=== PATIENT | male | born 1970 ===

== ENCOUNTER 2018-08-01 23:50 | Emergency (ER) | payer MEDICAID ==
[2018-08-02] MEDS ORDERED: Sodium Chloride 0.9% 1,000 ML IV ONE (00:20)
--- NOTE | 2018-08-02 00:20 | C.PDOC ---
History Of Present Illness 48 year old male presents to the ED c/o abdominal pain associated with nausea, vomit and diarrhea. Patient states symptoms started after eating [employer]. Patient denies fever, chills, back pain, dysuria, hematuria, rash, recent t ravel, sick contacts. Time Seen by Provider: 08/02/18 00:20 Chief Complaint (Nursing): Abdominal Pain History Per: Patient History/Exam Limitations: no limitations Onset/Duration Of Symptoms: Hrs Current Symptoms Are (Timing): Still Present Context: Food Location Of Pain/Discomfort: Diffuse Quality Of Discomfort: "Pain" Associated Symptoms: Nausea, Vomiting, Diarrhea. denies: Urinary Symptoms Alleviating Factors: None Recent travel outside of the [place]: No Additional History Per: Patient Past Medical History Reviewed: Historical Data, Nursing Documentation, Vital Signs Vital Signs: Last Vital Signs Temp 98 F 08/01/18 23:57 Pulse 77 08/01/18 23:57 Resp 18 08/01/18 23:57 BP 151/74 H 08/01/18 23:57 Pulse Ox 99 08/01/18 23:57 - Medical History PMH: No Chronic Diseases Denies: Chronic Kidney Disease Surgical History: No Surg Hx Family History: States: Unknown Family Hx - Social History Hx Alcohol Use: No Hx Substance Use: No - Immunization History Hx Tetanus Toxoid Vaccination: No Hx Influenza Vaccination: No Hx Pneumococcal Vaccination: No Review Of Systems Constitutional: Negative for: Fever, Chills Cardiovascular: Negative for: Chest Pain Respiratory: Negative for: Shortness of Breath Gastrointestinal: Positive for: Nausea, Vomiting, Abdominal Pain, Diarrhea Genitourinary: Negative for: Dysuria, Hematuria Musculoskeletal: Negative for: Back Pain Skin: Negative for: Rash Neurological: Negative for: Weakness, Numbness Physical Exam - Physical Exam Appears: Non-toxic, No Acute Distress Skin: Warm, Dry Head: Normacephalic Eye(s): bilateral: Normal Inspection Oral Mucosa: Moist Neck: Supple Chest: Symmetrical Cardiovascular: Rhythm Regular Respiratory: No Rales, No Rhonchi, No Wheezing Gastrointestinal/Abdominal: Soft, Tenderness (mid epigastric), No Guarding Back: No CVA Tenderness Extremity: Bilateral: Atraumatic, Normal Color And Temperature, Normal ROM Neurological/Psych: Oriented x3, Normal Speech, Normal Cognition Gait: Steady ED Course And Treatment - Laboratory Results Result Diagrams: 08/02/18 00:32 08/02/18 00:32 O2 Sat by Pulse Oximetry: 99 (ON RA) Pulse Ox Interpretation: Normal Progress Note: Plan: - Labs. - Protonox 40 mg IVP. - IV fluids. - Zofran 4 mg IVP. - UA. pt tolerating PO Reevaluation Time: 02:13 Reassessment Condition: Improved Disposition Counseled Patient/Family Regarding: Studies Performed, Diagnosis, Need For Followup, Rx Given - Disposition Referrals: [facility] [Outside] [facility] [Outside] Disposition: HOME/ ROUTINE Disposition Time: 00:20 Condition: FAIR Additional Instructions: Please return if symptoms recur Prescriptions: Ondansetron ODT [Zofran ODT] 1 odt PO BID PRN #6 odt PRN Reason: Nausea/Vomiting Instructions: Food Poisoning (DC) Forms: [employer] (Brazilian) - Clinical Impression Clinical Impression: Food poisoning - Scribe Statement The provider has reviewed the documentation as recorded by the Scribe Marvin Huizar All medical record entries made by the Scribe were at my direction and personally dictated by me. I have reviewed the chart and agree that the record accurately reflects my personal performance of the history, physical exam, m edical decision making, and the department course for this patient. I have also personally directed, reviewed, and agree with the discharge instructions and disposition.
[2018-08-02 00:36] LABS: BASO % 0.5 % (0.0-2.0); EOS % 0.4 % (0.0-4.0); HEMOGLOBIN 13.7 g/dL (12.0-18.0); LYMPH # 0.4 K/uL (1.0-4.3); LYMPH % 4.1 % (20.0-40.0); MEAN CELL VOLUME 85.1 fL (80.0-94.0); MEAN CORPUSCULAR HGB CONC 34.1 g/dL (33.0-37.0); MEAN PLATELET VOLUME 8.6 fL (7.2-11.7); MONO # 0.5 K/uL (0.0-0.8); MONO % 5.5 % (0.0-10.0); NEUT # 8.2 K/uL (1.8-7.0); NEUT % 89.5 % (50.0-75.0); NRBC % 0.1 % (0.0-2.0); PLATELET COUNT 66 K/uL (130-400); RBC 4.73 Mil/uL (4.40-5.90); RED CELL DISTRIBUTION WIDTH 16.5 % (11.5-14.5); WHITE BLOOD COUNT 9.2 K/uL (4.8-10.8)
[2018-08-02 00:54] LABS: ALB/GLOB RATIO 0.8 (1.0-2.1); ALBUMIN 3.4 g/dL (3.5-5.0); ALT/SGPT 28 U/L (21-72); AST/SGOT 57 U/L (17-59); BLOOD UREA NITROGEN 8 mg/dL (9-20); CALCIUM 8.2 mg/dl (8.6-10.4); GFR NON-AFRICAN AMERICAN > 60; LIPASE 104 U/L (23-300)
[2018-08-02 01:27] LABS: BANDS 2 % (0-2); LYMPHOCYTE 6 % (20-40); MONOCYTE 6 % (0-10); NEUTROPHIL 86 % (50-75); TOTAL CELLS COUNTED 100
[2018-08-02 01:28] LABS: PLATELET ESTIMATE DECREASED (NORMAL)
[2018-08-02 02:29] VITALS: BP 125/76; PULSE 88; RESP 20; TEMP 98; O2SAT 96
[2018-08-02 02:44] LABS: SQUAMOUS EPITHIAL < 1 /hpf (0-5); URINE BILIRUBIN NEGATIVE (NEGATIVE); URINE BLOOD 1+ (NEGATIVE); URINE CLARITY Clear (Clear); URINE COLOR Amber (YELLOW); URINE GLUCOSE (UA) NORMAL (Normal); URINE LEUKOCYTE ESTERASE NEG Leu/uL (Negative); URINE PROTEIN 1+ mg/dL (NEGATIVE)
== END 2018-08-02 02:29 | disposition home or self-care (01) ==
LOC: C.ER 23:50
DX: T62.91XA Toxic effect of unspecified noxious substance eaten as food, accidental (unintentional), initial encounter (principal)
CPT/HCPCS: 80053; 81001; 83690; 85025; 96361; 96374; 96375; 99285; C9113; J1885; J2405; J7030

== ENCOUNTER 2018-12-09 10:17 | Inpatient (IN) | payer MEDICAID ==
[2018-12-09 10:51] LABS: BASO % 0.2 % (0.0-2.0); EOS # 0.1 K/uL (0.0-0.7); EOS % 0.7 % (0.0-4.0); LYMPH # 0.7 K/uL (1.0-4.3); LYMPH % 8.8 % (20.0-40.0); MEAN CORPUSCULAR HEMOGLOBIN 30.3 pg (27.0-31.0); MEAN CORPUSCULAR HGB CONC 34.6 g/dL (33.0-37.0); MEAN PLATELET VOLUME 8.6 fL (7.2-11.7); MONO # 0.1 K/uL (0.0-0.8); MONO % 0.9 % (0.0-10.0); NEUT # 6.7 K/uL (1.8-7.0); NEUT % 89.4 % (50.0-75.0); RBC 4.29 Mil/uL (4.40-5.90); RED CELL DISTRIBUTION WIDTH 15.7 % (11.5-14.5); WHITE BLOOD COUNT 7.5 K/uL (4.8-10.8)
[2018-12-09 10:55] LABS: VENOUS BLOOD GAS PCO2 36 mmHg (40-60); VENOUS BLOOD GAS PO2 47 mm/Hg (30-55)
--- NOTE | 2018-12-09 10:58 | C.PDOC ---
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 Patient denies chest pain, shortness of breath, cough, and dysuria. Time Seen by Provider: 12/09/18 10:25 Chief Complaint (Nursing): Abdominal Pain History Per: Patient, EMS History/Exam Limitations: no limitations Onset/Duration Of Symptoms: Hrs (2) Current Symptoms Are (Timing): Still Present Severity: Moderate Radiation Of Pain To:: Back Quality Of Discomfort: "Pain" Associated Symptoms: Nausea, Vomiting, Diarrhea, Back Pain. denies: Chest Pain, Urinary Symptoms Additional History Per: Patient Past Medical History Reviewed: Historical Data, Nursing Documentation, Vital Signs Vital Signs: Last Vital Signs Temp 103.0 F H 12/09/18 10:25 Pulse 95 H 12/09/18 10:25 Resp 18 12/09/18 10:25 BP 142/54 L 12/09/18 10:25 Pulse Ox 95 12/09/18 10:25 - Medical History PMH: No Chronic Diseases Surgical History: No Surg Hx Family History: States: No Known Family Hx - Social History Hx Alcohol Use: No Hx Substance Use: No - Immunization History Hx Tetanus Toxoid Vaccination: No Hx Influenza Vaccination: Yes Hx Pneumococcal Vaccination: Yes Review Of Systems Constitutional: Positive for: Fever Cardiovascular: Negative for: Chest Pain, Palpitations Respiratory: Negative for: Cough, Shortness of Breath Gastrointestinal: Positive for: Nausea, Vomiting, Abdominal Pain, Diarrhea Genitourinary: Negative for: Dysuria Musculoskeletal: Positive for: Back Pain (lower) Skin: Negative for: Rash Physical Exam - Physical Exam Appears: Well, Non-toxic, No Acute Distress, Other (in moderate pain, moaning ) Skin: Warm, Dry, Other (diffuse psoriatic lesions to back, abdomen and hands and primarily on arms and legs bilaterally ) Eye(s): bilateral: Normal Inspection Oral Mucosa: Moist Neck: Supple Chest: Symmetrical, No Deformity, No Tenderness Cardiovascular: Rhythm Regular, Murmur (3/6, holosystolic ), Other (tachycardic ) Respiratory: Normal Breath Sounds, No Rales, No Rhonchi, No Wheezing Gastrointestinal/Abdominal: Bowel Sounds, Soft, Tenderness (diffuse TTP, no overlying erythema), Distention (mild), No Guarding, No Rebound, Other (obese ) Extremity: Normal ROM, No Pedal Edema, No Calf Tenderness Neurological/Psych: Oriented x3, Other (appers to be underinfluence of drugs, able to follow commands) ED Course And Treatment - Laboratory Results Result Diagrams: 12/09/18 10:46 12/09/18 10:46 Lab Results: pO2 47 mm/Hg (30-55) 12/09/18 10:51 VBG pH 7.40 (7.32-7.43) 12/09/18 10:51 VBG pCO2 36 mmHg (40-60) L 12/09/18 10:51 VBG HCO3 23.0 mmol/L 12/09/18 10:51 VBG Total CO2 23.4 mmol/L (22-28) 12/09/18 10:51 VBG O2 Sat (Calc) 82.9 % (40-65) H 12/09/18 10:51 VBG Base Excess -2.0 mmol/L (0.0-2.0) L 12/09/18 10:51 VBG Potassium 3.0 mmol/L (3.6-5.2) L 12/09/18 10:51 Sodium 141.0 mmol/l (132-148) 12/09/18 10:51 Chloride 106.0 mmol/L (98-107) 12/09/18 10:51 Glucose 69 mg/dl (75-110) L 12/09/18 10:51 Lactate 4.9 mmol/L (0.7-2.1) H* 12/09/18 10:51 Crit Value Called To Dr echeverria 12/09/18 10:51 Crit Value Called By Girma hirsch business process manager 12/09/18 10:51 Crit Value Read Back Y 12/09/18 10:51 Blood Gas Notified Time 1055 12/09/18 10:51 O2 Sat by Pulse Oximetry: 95 (on RA) Pulse Ox Interpretation: Normal - Other Rad CXR X-Ray: Viewed By Me, Read By Radiologist Interpretation: HISTORY: FEVER. COMPARISON: None available. TECHNIQUE: Chest, one view. FINDINGS: Examination limited by habitus, hypoinflation, and patient obliquity. LUNGS: No focal consolidation. Please note that chest x- ray has limited sensitivity for the detection of pulmonary masses. PLEURA: No significant pleural effusion identified. No definite pneumothorax . CARDIO VASCULAR: Heart size appears top normal. No significant atherosclerotic calcification present. OSSEOUS STRUCTURES: No acute osseous abnormality identified. VISUALIZED UPPER ABDOMEN: Unremarkable. OTHER FINDINGS: None. IMPRESSION: No focal consolidation. Progress Note: Bloodwork, urinalysis, CXR, CT A/P ordered and reviewed. Motrin PO, Toradol IVP, Zofran IVP, and Zosyn IVP given. Disposition - Disposition Disposition Time: 13:25 Condition: STABLE Forms: [employer] (Icelandic) - Clinical Impression Clinical Impression: Fever, Abdominal pain, Nausea, Vomiting, Diarrhea - Scribe Statement The provider has reviewed the documentation as recorded by the Scribe (Neeru Garza) Provider Attestation: All medical record entries made by the Scribe were at my direction and personally dictated by me. I have reviewed the chart and agree that the record accurately reflects my personal performance of the history, physical exam, medical decision making, and the department course for this patient. I have also personally directed, reviewed, and agree with the discharge instructions and disposition. Physician Patient Turnover Patient Signed Over To: Lilo Barnes Handoff Comments: pending CT abd/pelvis
[2018-12-09] MEDS ORDERED: Piperacillin/Tazobact 3.375 gm 100 ML IV STA (10:59)
[2018-12-09 11:03] LABS: INR 1.8; PROTHROMBIN TIME 19.7 SECONDS (9.7-12.2)
[2018-12-09 11:07] LABS: MEAN CELL VOLUME 87.7 fL (80.0-94.0)
[2018-12-09 11:08] LABS: PLATELET COUNT 86 K/uL (130-400)
[2018-12-09 11:13] LABS: ALB/GLOB RATIO 0.8 (1.0-2.1); ALBUMIN 2.9 g/dL (3.5-5.0); ALT/SGPT 15 U/L (21-72); AST/SGOT 54 U/L (17-59); BLOOD UREA NITROGEN 7 mg/dL (9-20); CALCIUM 8.2 mg/dl (8.6-10.4); GFR NON-AFRICAN AMERICAN > 60; LIPASE 146 U/L (23-300)
[2018-12-09] MEDS ORDERED: Sodium Chloride 0.9% 1,000 ML IV ONE (11:25)
[2018-12-09] MEDS ORDERED: Piperacillin/Tazobact 3.375 gm 100 ML IVPB ONE (11:30)
[2018-12-09] MEDS ORDERED: Iodixanol 320 MG/ML 100 ML BOTTLE IV ONE (11:36)
[2018-12-09 11:37] LABS: BANDS 21 % (0-2); LYMPHOCYTE 5 % (20-40); MONOCYTE 3 % (0-10); MYELOCYTE 1 % (0-0); NEUTROPHIL 70 % (50-75); TOTAL CELLS COUNTED 100
[2018-12-09 11:38] LABS: PLATELET ESTIMATE DECREASED (NORMAL)
--- NOTE | 2018-12-09 11:45 | RAD ---
HISTORY: FEVER COMPARISON: None available. TECHNIQUE: Chest, one view. FINDINGS: Examination limited by habitus, hypoinflation, and patient obliquity. LUNGS: No focal consolidation. Please note that chest x-ray has limited sensitivity for the detection of pulmonary masses. PLEURA: No significant pleural effusion identified. No definite pneumothorax . CARDIOVASCULAR: Heart size appears top normal. No significant atherosclerotic calcification present. OSSEOUS STRUCTURES: No acute osseous abnormality identified. VISUALIZED UPPER ABDOMEN: Unremarkable. OTHER FINDINGS: None. IMPRESSION: No focal consolidation.
[2018-12-09 11:49] LABS: SQUAMOUS EPITHIAL 1 /hpf (0-5); URINE BILIRUBIN NEGATIVE (NEGATIVE); URINE BLOOD 1+ (NEGATIVE); URINE CLARITY Hazy (Clear); URINE COLOR Yellow (YELLOW); URINE GLUCOSE (UA) NORMAL (Normal); URINE LEUKOCYTE ESTERASE NEG Leu/uL (Negative); URINE PROTEIN NEGATIVE (NEGATIVE)
[2018-12-09] MEDS ORDERED: Sodium Chloride 0.9% 2,000 ML IV ONE (11:50)
[2018-12-09 12:17] LABS: BARBITURATES, UR NEGATIVE (NEGATIVE); BENZODIAZEPINES, UR NEGATIVE (NEGATIVE); OPIATES, UR NEGATIVE (NEGATIVE); PHENCYCLIDINE, UR NEGATIVE (NEGATIVE)
--- NOTE | 2018-12-09 14:02 | CT ---
Date of service: 12/09/2018 PROCEDURE: CT Abdomen and Pelvis with contrast HISTORY: DIFFUSE ABD PAIN, ASCITES, FEVER COMPARISON: None available. TECHNIQUE: Contrast dose: 100 mL Radiation dose: Total exam DLP = 1164.72 mGy-cm. This CT exam was performed using one or more of the following dose reduction techniques: Automated exposure control, adjustment of the mA and/or kV according to patient size, and/or use of iterative reconstruction technique. FINDINGS: LOWER THORAX: 9 x 14 mm nodule at the right hemidiaphragm. No visible consolidation, pleural effusion, or pneumothorax. Mamie off a GB air sees. Thickened abnormal appearance of the included portions distal esophagus. LIVER: Nodular hepatic contour. Heterogeneous hepatic echotexture. Ill-defined hypoattenuation within the left hepatic lobe. GALLBLADDER AND BILE DUCTS: Unremarkable. PANCREAS: Atrophic. SPLEEN: Marked splenomegaly. 3.0 cm probable splenule. ADRENALS: Unremarkable. KIDNEYS AND URETERS: The kidneys enhance symmetrically. No hydronephrosis or obstructing calculus identified. VASCULATURE: Upper abdominal varices. No aortic aneurysm. No atherosclerotic calcification or mural plaque present. BOWEL: Stomach is nondistended. Lack of oral contrast limits evaluation for bowel pathology. Focal short segment wall thickening of the right colon; correlate clinically for the possibility of colitis versus malignant neoplasm. APPENDIX: Not visualized. PERITONEUM: No significant free fluid. No definite free air. LYMPH NODES: Retroperitoneal and mesenteric adenopathy. Bulky left inguinal adenopathy measuring up to approximately 2.4 cm in short axis. BLADDER: Under distention of the urinary bladder limits evaluation. REPRODUCTIVE: Unremarkable. BONES: Degenerative changes. OTHER FINDINGS: Small fat containing umbilical hernia. Fluid-filled right inguinal hernia. IMPRESSION: Cirrhotic appearance of the liver as described above. Ill-defined hypoattenuation of the left hepatic lobe. Overall heterogeneous hepatic echotexture. Nodular hepatic contour. 9 x 14 mm nodule noted at the right hemidiaphragm. Atrophic pancreas. Marked splenomegaly. Probable 3 cm splenule. Extensive upper abdominal and esophageal varices. Thick-walled abnormal appearance of the distal esophagus. Focal short segment wall thickening of the right colon; correlate clinically for possibility of colitis versus malignant neoplasm. Retroperitoneal mesenteric adenopathy. Bulky left inguinal adenopathy measures up to 2.4 cm in short axis. Fluid-filled right inguinal hernia. Small fat containing umbilical hernia. Additional findings as above. Findings discussed with Dr. Cheney on 12/09/18 at 1:47 p.m.
--- NOTE | 2018-12-09 14:25 | CP.PCM.HP ---
History of Present Illness - History of Present Illness History of Present Illness: PGY1 Medicine History and Physical Exam Note for Dr. 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 Patient describes the abdominal pain as diffuse, 10/10 in severity, and burning in quality. Patient denies radiating pain, but adds that he also experiences low back pain. Patient says he has been vomiting since last night (non-bilious/non-bloody), and denies blood in his stool/melena. Of note, Patient also complains of left lower extremity pain and attributes it to his venous ulcer. Patient states the wound has been improving significantly, and that he has been changing his dressings daily. Patient otherwise denies headache, chest pain, dysuria, hematuria, hematemesis, fatigue, dizziness, rash, and/or numbness/tingling, PMH: Liver Cirrhosis (secondary to ETOH), previous IVDU (on methadone), and Pso riasis PSH: Patient denies Social Hx: Previous ETOH abuse, 1/2 pack per day of cigarettes x15 years, previous heroin abuse, on methadone Family Hx: Patient denies family hx of cancer, heart disease, and/or diabetes Meds: Methadon ([facility]), Otela (Patient does not recall dose, is non- compliant) Allergies: NKDA PMD: Patient denies Present on Admission - Present on Admission Any Indicators Present on Admission: No History of DVT/PE: No History of Uncontrolled Diabetes: No Urinary Catheter: No Decubitus Ulcer Present: No Review of Systems - Review of Systems All systems: reviewed and no additional remarkable complaints except (as noted in HPI) Past Patient History - Past Social History Smoking Status: Unknown If Ever Smoked - CARDIAC Hx Cardiac Disorders: No - PULMONARY Hx Respiratory Disorders: No - NEUROLOGICAL Hx Neurological Disorder: No - HEENT Hx HEENT Problems: No - RENAL Hx Chronic Kidney Disease: No - ENDOCRINE/METABOLIC Hx Endocrine Disorders: No - HEMATOLOGICAL/ONCOLOGICAL Hx Blood Disorders: No - INTEGUMENTARY Hx Dermatological Problems: No - MUSCULOSKELETAL/RHEUMATOLOGICAL Hx Musculoskeletal Disorders: No - GASTROINTESTINAL Hx Gastrointestinal Disorders: Yes Hx Liver Failure: Yes (liver cirrhosis) - GENITOURINARY/GYNECOLOGICAL Hx Genitourinary Disorders: No - PSYCHIATRIC Hx Substance Use: No - SURGICAL HISTORY Hx Surgeries: No - ANESTHESIA Hx Anesthesia: No Meds Allergies/Adverse Reactions: Allergies Allergy/AdvReac Type Severity Reaction Status Date / Time No Known Allergies Allergy Verified 12/09/18 10:26 Physical Exam - Constitutional Appears: Non-toxic, No Acute Distress, Chronically Ill - Head Exam Head Exam: ATRAUMATIC, NORMAL INSPECTION, NORMOCEPHALIC - Eye Exam Eye Exam: EOMI, Normal appearance, PERRL Pupil Exam: NORMAL ACCOMODATION - ENT Exam ENT Exam: Mucous Membranes Dry Additional comments: poor dentition - Neck Exam Neck exam: Positive for: Normal Inspection - Respiratory Exam Respiratory Exam: Clear to Auscultation Bilateral, NORMAL BREATHING PATTERN. absent: Accessory Muscle Use, Chest Wall Tenderness, Decreased Breath Sounds, Prolonged Expiratory Phase, Rales, Rhonchi, Wheezes, Respiratory Distress, Stridor - Cardiovascular Exam Cardiovascular Exam: Tachycardia, +S1, +S2. absent: Diastolic murmur, Irregular Rhythm, JVD, Systolic Murmur - GI/Abdominal Exam GI & Abdominal Exam: Normal Bowel Sounds, Soft, Tenderness (right lower quadrant tenderness, no rebound, no guarding ). absent: Diminished Bowel Sounds, Distended, Firm, Guarding, Organomegaly, Rebound, Rigid - Extremities Exam Extremities exam: Positive for: full ROM, pedal edema (+2 bilaterally ), pedal pulses present (chronic ulcer on left medial malleolus: 3-inch in diameter, no pus, clean, no foul smell, ). Negative for: calf tenderness - Back Exam Back exam: tenderness (lower back paraspinal muscles ) - Neurological Exam Neurological exam: Alert, CN II-XII Intact, Oriented x3 - Psychiatric Exam Psychiatric exam: Normal Affect, Normal Mood - Skin Skin Exam: Dry, Intact, Normal Color, Warm Results - Vital Signs Recent Vital Signs: Last Vital Signs Temp 98.6 F 12/09/18 13:52 Pulse 95 H 12/09/18 10:25 Resp 18 12/09/18 10:25 BP 142/54 L 12/09/18 10:25 Pulse Ox 95 12/09/18 13:26 - Labs Result Diagrams: 12/09/18 10:46 12/09/18 10:46 Labs: Laboratory Results - last 24 hr 12/09/18 12/09/1819 10:46 10:46 10:46 WBC 7.5 RBC 4.29 L Hgb 13.0 Hct 37.6 MCV 87.7 D MCH 30.3 MCHC 34.6 RDW 15.7 H Plt Count 86 L D MPV 8.6 Neut % (Auto) 89.4 H Lymph % (Auto) 8.8 L [place] % (Auto) 0.9 Eos % (Auto) 0.7 Baso % (Auto) 0.2 Neut # (Auto) 6.7 Lymph # (Auto) 0.7 L [place] # (Auto) 0.1 Eos # (Auto) 0.1 Baso # (Auto) 0.0 Neutrophils % (Manual) 70 Band Neutrophils % 21 H* Lymphocytes % (Manual) 5 L Monocytes % (Manual) 3 Myelocytes % 1 H Platelet Estimate Decreased L PT 19.7 H INR 1.8 APTT 36 H pO2 VBG pH VBG pCO2 VBG HCO3 VBG Total CO2 VBG O2 Sat (Calc) VBG Base Excess VBG Potassium Glucose Lactate Crit Value Called To Crit Value Called By Crit Value Read Back Blood Gas Notified Time Sodium 140 Potassium 3.2 L Chloride 108 H Carbon Dioxide 23 Anion Gap 12 BUN 7 L Creatinine 0.8 Est GFR ( Amer) > 60 Est GFR (Non-Af Amer) > 60 Random Glucose 82 Calcium 8.2 L Total Bilirubin 1.8 H AST 54 ALT 15 L D Alkaline Phosphatase 216 H Total Protein 6.6 Albumin 2.9 L Globulin 3.7 Albumin/Globulin Ratio 0.8 L Lipase 146 Venous Blood Potassium Urine Color Urine Clarity Urine pH Ur Specific [place] Urine Protein Urine Glucose (UA) Urine Ketones Urine Blood Urine Nitrate Urine Bilirubin Urine Urobilinogen Ur Leukocyte Esterase Urine WBC (Auto) Urine RBC (Auto) Ur Squamous Epith Cells Urine Opiates Screen Urine Methadone Screen Ur Barbiturates Screen Ur Phencyclidine Scrn Ur Amphetamines Screen U Benzodiazepines Scrn U Oth Cocaine Metabols U Cannabinoids Screen Alcohol, Quantitative < 10 12/09/18 12/09/18 12/09/18 10:51 11:40 11:40 WBC RBC Hgb Hct MCV MCH MCHC RDW Plt Count MPV Neut % (Auto) Lymph % (Auto) [place] % (Auto) Eos % (Auto) Baso % (Auto) Neut # (Auto) Lymph # (Auto) [place] # (Auto) Eos # (Auto) Baso # (Auto) Neutrophils % (Manual) Band Neutrophils % Lymphocytes % (Manual) Monocytes % (Manual) Myelocytes % Platelet Estimate PT INR APTT pO2 47 VBG pH 7.40 VBG pCO2 36 L VBG HCO3 23.0 VBG Total CO2 23.4 VBG O2 Sat (Calc) 82.9 H VBG Base Excess -2.0 L VBG Potassium 3.0 L Glucose 69 L Lactate 4.9 H* Crit Value Called To Dr echeverria Crit Value Called By Girma hirsch wash oil pump operator Crit Value Read Back Y Blood Gas Notified Time 1055 Sodium 141.0 Potassium Chloride 106.0 Carbon Dioxide Anion Gap BUN Creatinine Est GFR ( Amer) Est GFR (Non-Af Amer) Random Glucose Calcium Total Bilirubin AST ALT Alkaline Phosphatase Total Protein Albumin Globulin Albumin/Globulin Ratio Lipase Venous Blood Potassium 3.0 L Urine Color Yellow Urine Clarity Hazy Urine pH 6.0 Ur Specific [place] 1.009 Urine Protein Negative Urine Glucose (UA) Normal Urine Ketones Negative Urine Blood 1+ H Urine Nitrate Negative Urine Bilirubin Negative Urine Urobilinogen 2.0 Ur Leukocyte Esterase Neg Urine WBC (Auto) 2 Urine RBC (Auto) 8 H Ur Squamous Epith Cells 1 Urine Opiates Screen Negative Urine Methadone Screen Positive H Ur Barbiturates Screen Negative Ur Phencyclidine Scrn Negative Ur Amphetamines Screen Negative U Benzodiazepines Scrn Negative U Oth Cocaine Metabols Negative U Cannabinoids Screen Negative Alcohol, Quantitative Assessment & Plan - Assessment and Plan (Free Text) Assessment: PMHx includes psoriasis and liver cirrhosis (secondary to alcohol abuse), is brought to the ED by ambulance for evaluation of abdominal pain, nausea, vomiting, diarrhea and lower back pain 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 Patient was found to have lactate 4.9, fever, and bands --> CODE SEPSIS was called in ED. Patient subsequently resuscitated with aggressive fluids, started on zosyn. ID was consulted (Dr. Little). Patient subsequently admitted to telemetry. Abdominal Pain, Nausea, Vomiting - Patient has history of cirrhosis and varicosities - GI consulted (Dr. Dixon); recommendations appreciated - 12/09 CT abdomen/pelvis revealed: * cirrhotic appearance of liver * 9x14mm nodule at right hemidiaphragm * arophic pancreas * marked splenomegaly * extensive upper abdominal / esophageal varices * thick-walled appearance of distal esophagus * thickening of right colon; possible colitis vs malignant neoplasm * retroperitoneal mesenteric adenopathy; bulky left inguinal adenopathy 2.4m; fluid-filled right inguinal hernia; small fat containing umbilical hernia - F/U Blood cultures - F/U Urine cultures - UDS: positive for methadone - Zofran 4mg IV Q6H PRN - Toradol PRN for severe pain - NPO --> advance to liquid as tolerated - IVF @100cc/hr - Monitor in telemetry CODE SEPSIS - Bands: 21; VBG shock: lactate 4.9 - F/U VBG repeat: lactate 4.7 - 3L bolus administered in ED - Continue NS @ 100cc/hr - CXR: IMPRESSION: No focal consolidation (please see report) - CT abdomen/pelvis as per above - F/U Blood cultures - F/U Urine cultures - Zosyn x1 dose in ED - Continue Zosyn Q8H IVPB Hypokalemia - Replete with K+ rider - Replete as needed - Monitor CMP, Mg in AM Abnormal urinalysis - +1 blood, 8 RBC - F/U Urine cultures Thombocytopenia - Platelets 86; improved (08/02 was 66) - Monitor CMP - Avoid Heparin products at this time Lower Extremity Edema - Likely secondary to cirrhosis - Ulcer on left lower extremity about 3inches in diameter in left medial malleolus is clean, no oozing. dressing changed in ED - Toradol prn for severe pain - F/U venous doppler B/L to rule-out DVT PPx: - DVT: SCD contraindicated; no lovenox at this time - GI: protonix 40mg IV Q[address] Kwadwo Littlejohn PGY1
[2018-12-09 15:25] LABS: VENOUS BLOOD GAS BASE EXCESS -5.2 mmol/L (0.0-2.0); VENOUS BLOOD GAS PCO2 37 mmHg (40-60); VENOUS BLOOD GAS PO2 47 mm/Hg (30-55); VENOUS BLOOD PH 7.34 (7.32-7.43)
--- NOTE | 2018-12-09 15:31 | PCM.SEPTIC ---
Sepsis Progress Note - Reassessment Type Date of Evaluation: 12/09/18 Time of Evaluation: 15:27 Reassessment Type: Non-invasive reassessment - Non Invasive Reassessment Were the most recent vital sign reviewed: Yes Vital Sign (Latest): Temp Pulse Resp BP Pulse Ox 98.5 F 95 H 18 101/62 97 12/09/18 14:43 12/09/18 14:43 12/09/18 14:43 12/09/18 14:43 12/09/18 14:43 Cardiovascular: Yes: Regular Rate, Rhythm. No: Gallop, JVD Respiratory: Yes: Normal Breath Sounds. No: Decreased Breath Sounds, Crackles, Rales, Rhonchi, Stridor, Wheezing Capillary Refill: Normal (Less than 2 sec) Pulses: Normal Radial, Normal Dorsalis Pedis Skin: Normal Color
[2018-12-09] MEDS: Sodium Chloride 0.9% 1,000 ML IV SCH (15:36)
[2018-12-09] MEDS ORDERED: Sodium Chloride 0.9% 1,000 ML ONE (15:44)
[2018-12-09 16:56] VITALS: RESP 20
[2018-12-09] MEDS: Piperacillin/Tazobact 3.375 GM in Sodium Chloride 100 ML IVPB SCH (18:17)
[2018-12-10] MEDS: Piperacillin/Tazobact 3.375 GM in Sodium Chloride 100 ML IVPB SCH ×4 (00:29→19:25)
[2018-12-10] MEDS: Sodium Chloride 0.9% 1,000 ML IV SCH ×4 (00:30→22:43)
[2018-12-10 08:24] LABS: BASO % 0.1 % (0.0-2.0); HEMOGLOBIN 11.8 g/dL (12.0-18.0); LYMPH # 0.2 K/uL (1.0-4.3); LYMPH % 1.6 % (20.0-40.0); MEAN CELL VOLUME 88.8 fL (80.0-94.0); MEAN CORPUSCULAR HEMOGLOBIN 30.3 pg (27.0-31.0); MEAN CORPUSCULAR HGB CONC 34.1 g/dL (33.0-37.0); MEAN PLATELET VOLUME 9.6 fL (7.2-11.7); MONO # 0.5 K/uL (0.0-0.8); MONO % 3.7 % (0.0-10.0); NEUT # 12.7 K/uL (1.8-7.0); NEUT % 94.6 % (50.0-75.0); NRBC % 0.1 % (0.0-2.0); RED CELL DISTRIBUTION WIDTH 16.1 % (11.5-14.5)
[2018-12-10 08:27] LABS: ALB/GLOB RATIO 0.7 (1.0-2.1); ALBUMIN 2.3 g/dL (3.5-5.0); ALT/SGPT 26 U/L (21-72); AST/SGOT 75 U/L (17-59); BLOOD UREA NITROGEN 17 mg/dL (9-20); CALCIUM 7.4 mg/dl (8.6-10.4); GFR NON-AFRICAN AMERICAN > 60
[2018-12-10 08:35] LABS: PLATELET COUNT 55 K/uL (130-400); WHITE BLOOD COUNT 13.4 K/uL (4.8-10.8)
[2018-12-10 10:19] LABS: BANDS 47 % (0-2); LYMPHOCYTE 4 % (20-40); MONOCYTE 2 % (0-10); NEUTROPHIL 47 % (50-75); TOTAL CELLS COUNTED 100
[2018-12-10 10:20] LABS: ANISOCYTOSIS SLIGHT; PLATELET ESTIMATE DECREASED (NORMAL); POIKILOCYTOSIS SLIGHT
[2018-12-10] MEDS: Magnesium Sulfate 1 gm in D5W 1 GM/100 ML BAG IVPB SCH ×2 (10:39→15:05)
--- NOTE | 2018-12-10 11:25 | CP.PCM.PN ---
Subjective - Date & Time of Evaluation Date of Evaluation: 12/10/18 Time of Evaluation: 11:25 - Subjective Subjective: PGY1 Medicine Progress Note for Dr. Burkett Patient seen and evaluated at bedside this morning. No acute events overnight. No new complaints. Patient says he is hungry; endorses BM. Denies nausea, vomiting. Patient says his abdominal pain improved significantly since admission. Patient otherwise denies dizziness, headache, fever, chills, numbness/tingling, and/or back pain. Objective - Vital Signs/Intake and Output Vital Signs (last 24 hours): Temp Pulse Resp BP Pulse Ox 98.5 F 100 H 20 99/58 L 94 L 12/10/18 08:23 12/10/18 08:23 12/10/18 08:23 12/10/18 08:23 12/10/18 08:23 Intake and Output: 12/10/18 12/10/18 06:59 18:59 Intake Total 700 Balance 700 - Medications Medications: Current Medications Sodium Chloride (Sodium Chloride 0.9%) 1,000 mls @ 100 mls/hr IV .Q10H NELIA Last Admin: 12/10/18 00:30 Dose: Not Given Piperacillin Sod/Tazobactam (Sod 3.375 gm/ Sodium Chloride) 100 mls @ 200 mls/hr IVPB Q6H NELIA; Protocol Last Admin: 12/10/18 05:30 Dose: 200 mls/hr Vancomycin HCl 1 gm/ Sodium (Chloride) 250 mls @ 166.7 mls/hr IVPB Q12H NELIA; Protocol Last Admin: 12/10/18 11:19 Dose: 166.7 mls/hr Ketorolac Tromethamine (Toradol) 15 mg IVP Q6 PRN PRN Reason: Pain, severe (8-10) Last Admin: 12/10/18 05:30 Dose: 15 mg Ondansetron HCl (Zofran Inj) 4 mg IVP Q8H PRN PRN Reason: Nausea/Vomiting Pantoprazole Sodium (Protonix Inj) 40 mg IVP Q12H NELIA Last Admin: 12/10/18 02:43 Dose: 40 mg - Labs Labs: 12/10/18 07:41 12/10/18 07:41 PT 19.7 SECONDS (9.7-12.2) H 12/09/18 10:46 INR 1.8 12/09/18 10:46 APTT 36 SECONDS (21-34) H 12/09/18 10:46 - Additional Findings Additional findings: - Constitutional Appears: Non-toxic, No Acute Distress, Chronically Ill - Head Exam Head Exam: ATRAUMATIC, NORMAL INSPECTION, NORMOCEPHALIC - Eye Exam Eye Exam: EOMI, Normal appearance, PERRL Pupil Exam: NORMAL ACCOMODATION - ENT Exam ENT Exam: Mucous Membranes Dry Additional comments: poor dentition - Neck Exam Neck exam: Positive for: Normal Inspection - Respiratory Exam Respiratory Exam: Clear to Auscultation Bilateral, NORMAL BREATHING PATTERN. absent: Accessory Muscle Use, Chest Wall Tenderness, Decreased Breath Sounds, Prolonged Expiratory Phase, Rales, Rhonchi, Wheezes, Respiratory Distress, Stridor - Cardiovascular Exam Cardiovascular Exam: Tachycardia, +S1, +S2. absent: Diastolic murmur, Irregular Rhythm, JVD, Systolic Murmur - GI/Abdominal Exam GI & Abdominal Exam: Normal Bowel Sounds, Soft, Tenderness (right lower quadrant tenderness, no rebound, no guarding ). absent: Diminished Bowel Sounds, Distended, Firm, Guarding, Organomegaly, Rebound, Rigid - Extremities Exam Extremities exam: Positive for: full ROM, pedal edema (+2 bilaterally ), pedal pulses present (chronic ulcer on left medial malleolus: 3-inch in diameter, no pus, clean, no foul smell, hemosiderinosis). Negative for: calf tenderness - Back Exam Back exam: tenderness (lower back paraspinal muscles ) - Neurological Exam Neurological exam: Alert, CN II-XII Intact, Oriented x3 - Psychiatric Exam Psychiatric exam: Normal Affect, Normal Mood - Skin Skin Exam: Dry, Intact, Normal Color, Warm Assessment and Plan - Assessment and Plan (Free Text) Assessment: PMHx includes psoriasis and liver cirrhosis (secondary to alcohol abuse), is brought to the ED by ambulance for evaluation of abdominal pain, nausea, vomiting, diarrhea and lower back pain which began around 2 hours BLACK BELT. Patient was found to have lactate 4.9, fever, and bands --> CODE SEPSIS was called in ED. Patient subsequently resuscitated with aggressive fluids, started on zosyn. ID was consulted (Dr. Little). Patient subsequently admitted to telemetry. Nausea, vomiting, and abdominal pain (improved) - In the setting of Liver Cirrhosis and Portal Hypertension - Patient has history of cirrhosis and varicosities - F/U stool culture, ova and parasite, influenza A/B, C-diff toxin - F/U Hepatitis panel, Hep A reflex, HIT antibody - GI consulted (Dr. Dixon); recommendations appreciated - 12/09 CT abdomen/pelvis revealed: * cirrhotic appearance of liver * 9x14mm nodule at right hemidiaphragm * arophic pancreas * marked splenomegaly * extensive upper abdominal / esophageal varices * thick-walled appearance of distal esophagus * thickening of right colon; possible colitis vs malignant neoplasm * retroperitoneal mesenteric adenopathy; bulky left inguinal adenopathy 2.4m; fluid-filled right inguinal hernia; small fat containing umbilical hernia - F/U Blood cultures - F/U Urine cultures - UDS: positive for methadone - Zofran 4mg IV Q6H PRN - Toradol PRN for severe pain - NPO --> advance to liquid as tolerated - IVF @100cc/hr - Monitor in telemetry Positive Blood culture: gram positive Cocci - Follow-up final results - on admission: Bands: 21; VBG shock: lactate 4.9 VBG repeat: lactate 4.7 3L bolus administered in ED Zosyn x1 dose in ED - Repeat bands 12/10: 47 - Leukocytosis 12/10 13.4 - ID (Dr. Little) consulted; recommendations appreciated - Continue NS @ 100cc/hr - CXR: IMPRESSION: No focal consolidation (please see report) - CT abdomen/pelvis as per above - Continue Zosyn Q8H IVPB - START: Vancomycin IVPB added 12/10 CODE SEPSIS, called on admission - Bands: 21; VBG shock: lactate 4.9 - F/U VBG repeat: lactate 4.7 - Repeat bands 12/10: 47 - Leukocytosis 12/10 13.4 - ID (Dr. Little) consulted; recommendations appreciated - F/U stool culture, ova and parasite, influenza A/B, C-diff toxin - 3L bolus administered in ED - Continue NS @ 100cc/hr - CXR: IMPRESSION: No focal consolidation (please see report) - CT abdomen/pelvis as per above - F/U Blood cultures - F/U Urine cultures - Zosyn x1 dose in ED - Continue Zosyn Q8H IVPB - Vancomycin IVPB added 12/10 Hypomagnesemia - Mg 1.1 - Replete as needed - F/U AM labs Hypokalemia, resolved - Replete with K+ rider - Replete as needed - Monitor CMP, Mg in AM Abnormal urinalysis - +1 blood, 8 RBC - F/U Urine cultures Thombocytopenia - 12/10: 55 (down from 86) - Likely 2/2 cirrhosis - Monitor CBC - Avoid Heparin products at this time Left Lower Extremity Venous Ulcer 2/2 Stasis - Likely secondary to chronic venous insufficiency - Compression stockings - Ulcer on left lower extremity about 3inches in diameter in left medial malleolus is clean, no oozing. dressing changed in ED - Toradol prn for severe pain - Venous doppler 12/09: no evidence DVT bilaterally. Wall thickening noted of bilateral great saphenous veins, mild valvular incompetence PPx: - DVT: SCD contraindicated; no lovenox at this time - GI: protonix 40mg IV Q[address] Kwadwo Littlejohn PGY1
--- NOTE | 2018-12-10 12:23 | CP.PCM.PCO ---
Physician Communication Note - Physician Communication Note Physician Communication Note: see above
--- NOTE | 2018-12-10 13:00 | CP.PCM.CON ---
History of Present Illness - History of Present Illness History of Present Illness: cellulitis left leg diarrhea- etio ? await cultures iv rx in progress 48-year-old M with PMH of Liver Cirrhosis (secondary to ETOH), previous IVDU (on methadone), and Psoriasis who presents to [facility] ED with abdominal pain , nausea, vomiting, and diarrhea x1 day. Patient also complains of left lower extremity pain and attributes it to his venous ulcer. PMH: Liver Cirrhosis (secondary to ETOH), previous IVDU (on methadone), and Psoriasis PSH: Patient denies Social Hx: Previous ETOH abuse, 1/2 pack per day of cigarettes x15 years, previous heroin abuse, on methadone Family Hx: Patient denies family hx of cancer, heart disease, and/or diabetes Meds: Methadon ([facility]), Otela (Patient does not recall dose, is non- compliant) Allergies: NKDA Review of Systems - Constitutional Constitutional: As Per HPI - EENT Eyes: absent: As Per HPI, Blind Spots, Blurred Vision, Change in Vision, Decreased Night Vision, Diplopia, Discharge, Dry Eye, Exophthalmos, Floaters, Irritation, Itchy Eyes, Loss of Peripheral Vision, Pain, Photophobia, Requires Corrective Lenses, Sees Flashes, Spots in Vision, Tunnel Vision, Other Visual Disturbances, Loss of Vision, Other Ears: absent: As Per HPI, Decreased Hearing, Ear Discharge, Ear Pain, Tinnitus, Abnormal Hearing, Disequilibrium, Dizziness, Other Nose/Mouth/Throat: absent: As Per HPI, Epistaxis, Nasal Congestion, Nasal Discharge, Nasal Obstruction, Nasal Trauma, Nose Pain, Post Nasal Drip, Sinus Pain, Sinus Pressure, Bleeding Gums, Change in Voice, Dental Pain, Dry Mouth, Dysphagia, Halitosis, Hoarsness, Lip Swelling, Mouth Lesions, Mouth Pain, Odynophagia, Sore Throat, Throat Swelling, Tongue Swelling, Facial Pain, Neck Pain, Neck Mass, Other - Cardiovascular Cardiovascular: absent: As Per HPI, Acrocyanosis, Chest Pain, Chest Pain at Rest, Chest Pain with Activity, Claudication, Diaphoresis, Dyspnea, Dyspnea on Exertion, Edema, Irregular Heart Rhythm, Pain Radiating to Arm/Neck/Jaw, Leg Edema, Leg Ulcers, Lightheadedness, Orthopnea, Palpitations, Paroxysmal Nocturnal Dyspnea, Pedal Edema, Radiating Pain, Rapid Heart Rate, Slow Heart Rate, Syncope, Other - Respiratory Respiratory: absent: As Per HPI, Cough, Dyspnea, Hemoptysis, Dyspnea on Exert ion, Wheezing, Snoring, Stridor, Pain on Inspiration, Chest Congestion, Excessive Mucous Production, Change in Mucous Color, Pain with Coughing, Other - Gastrointestinal Gastrointestinal: As Per HPI - Genitourinary Genitourinary: absent: As Per HPI, Change in Urinary Stream, Difficulty Urinating, Dysuria, Flank Pain, Hematuria, Pyuria, Nocturia, Urinary Incontinence, Urinary Frequency, Urinary Hesitance, Urinary Urgency, Voiding Freq/Small Amts, Freq UTI, Hx Renal/Bladder Calculi, Hx /Renal Surgery, Bladder Distension, Other - Musculoskeletal Musculoskeletal: As Per HPI - Integumentary Integumentary: As Per HPI, Skin Pain, Wounds - Neurological Neurological: absent: As Per HPI, Abnormal Gait, Abnormal Hearing, Abnormal Movements, Abnormal Speech, Behavioral Changes, Burning Sensations, Confusion, Convulsions, Disequilibrium, Dizziness, Numbness, Focal Weakness, Frequent Falls, Headaches, Lack of Coordination, Loss of Vision, Memory Loss, Paresthesias, Radicular Pain, Restless Legs, Sensory Deficit, Syncope, Tingling, Tremor, Vertigo, Weakness, Other Visual Disturbances, Other - Psychiatric Psychiatric: absent: As Per HPI, Abnormal Sleep Pattern, Anhedonia, Anxiety, Auditory Hallucinations, Behavioral Changes, Change in Appetite, Change in Libid o, Confusion, Depression, Difficulty Concentrating, Hallucinations, Homicidal Ideation, Hopelessness, Irritability, Memory Loss, Mood Swings, Panic Attacks, Paranoia, Suicidal Ideation, Visual Hallucinations, Tactile Hallucinations, Other - Endocrine Endocrine: absent: As Per HPI, Change in Body Appearance, Change in Libido, Cold Intolorance, Deepening of Voice, Excessive Sweating, Fatigue, Flushing, Heat Intolorance, Increase in Ring/Shoe/Hat Size, Palpitations, Polydipsia, Polyphagia, Polyuria, Other - Hematologic/Lymphatic Hematologic: absent: As Per HPI, Easy Bleeding, Easy Bruising, Lymphadenopathy, Other Past Patient History - Past Social History Smoking Status: Unknown If Ever Smoked - CARDIAC Hx Cardiac Disorders: No - PULMONARY Hx Respiratory Disorders: No - NEUROLOGICAL Hx Neurological Disorder: No - HEENT Hx HEENT Problems: No - RENAL Hx Chronic Kidney Disease: No - ENDOCRINE/METABOLIC Hx Endocrine Disorders: No - HEMATOLOGICAL/ONCOLOGICAL Hx Blood Disorders: No - INTEGUMENTARY Hx Dermatological Problems: No - MUSCULOSKELETAL/RHEUMATOLOGICAL Hx Musculoskeletal Disorders: No - GASTROINTESTINAL Hx Gastrointestinal Disorders: Yes Hx Liver Failure: Yes (liver cirrhosis) - GENITOURINARY/GYNECOLOGICAL Hx Genitourinary Disorders: No - PSYCHIATRIC Hx Substance Use: No - SURGICAL HISTORY Hx Surgeries: No - ANESTHESIA Hx Anesthesia: No Meds Allergies/Adverse Reactions: Allergies Allergy/AdvReac Type Severity Reaction Status Date / Time No Known Allergies Allergy Verified 12/09/18 10:26 - Medications Medications: Current Medications Sodium Chloride (Sodium Chloride 0.9%) 1,000 mls @ 100 mls/hr IV .Q10H NELIA Last Admin: 12/10/18 00:30 Dose: Not Given Piperacillin Sod/Tazobactam (Sod 3.375 gm/ Sodium Chloride) 100 mls @ 200 mls/hr IVPB Q6H NELIA; Protocol Last Admin: 12/10/18 05:30 Dose: 200 mls/hr Vancomycin HCl 1 gm/ Sodium (Chloride) 250 mls @ 166.7 mls/hr IVPB Q12H NELIA; Protocol Last Admin: 12/10/18 11:19 Dose: 166.7 mls/hr Ketorolac Tromethamine (Toradol) 15 mg IVP Q6 PRN PRN Reason: Pain, severe (8-10) Last Admin: 12/10/18 05:30 Dose: 15 mg Ondansetron HCl (Zofran Inj) 4 mg IVP Q8H PRN PRN Reason: Nausea/Vomiting Pantoprazole Sodium (Protonix Inj) 40 mg IVP Q12H NELIA Last Admin: 12/10/18 02:43 Dose: 40 mg Physical Exam - Constitutional Appears: Toxic - Head Exam Head Exam: ATRAUMATIC, NORMAL INSPECTION, NORMOCEPHALIC - Eye Exam Eye Exam: PERRL. absent: Scleral icterus Pupil Exam: NORMAL ACCOMODATION - ENT Exam ENT Exam: Mucous Membranes Dry, Normal Oropharynx - Neck Exam Neck exam: Negative for: Lymphadenopathy - Respiratory Exam Respiratory Exam: Decreased Breath Sounds, Clear to Auscultation Bilateral - Cardiovascular Exam Cardiovascular Exam: Tachycardia, REGULAR RHYTHM, +S1, +S2 - GI/Abdominal Exam GI & Abdominal Exam: Diminished Bowel Sounds, Distended, Guarding - Rectal Exam Rectal Exam: Deferred - Exam Exam: NORMAL INSPECTION - Extremities Exam Extremities exam: Positive for: pedal edema, tenderness, pedal pulses present. Negative for: normal inspection Additional comments: ulcer / celluliits left leg - Back Exam Back exam: absent: CVA tenderness (L), CVA tenderness (R) - Neurological Exam Neurological exam: Alert, CN II-XII Intact, Oriented x3, Reflexes Normal - Psychiatric Exam Psychiatric exam: Depressed - Skin Skin Exam: Rash Additional comments: severe psoriatic lesions especially upper extremities Results - Vital Signs Recent Vital Signs: Last Vital Signs Temp 98.5 F 12/10/18 08:23 Pulse 100 H 12/10/18 08:23 Resp 20 12/10/18 08:23 BP 99/58 L 12/10/18 08:23 Pulse Ox 94 L 12/10/18 08:23 - Labs Result Diagrams: 12/10/18 07:41 12/10/18 07:41 Labs: Laboratory Results - last 24 hr 12/09/18 12/09/18 12/09/18 10:46 15:17 16:05 WBC RBC Hgb Hct MCV MCH MCHC RDW Plt Count MPV Neut % (Auto) Lymph % (Auto) [place] % (Auto) Eos % (Auto) Baso % (Auto) Neut # (Auto) Lymph # (Auto) [place] # (Auto) Eos # (Auto) Baso # (Auto) Neutrophils % (Manual) Band Neutrophils % Lymphocytes % (Manual) Monocytes % (Manual) Platelet Estimate Poikilocytosis (manual Anisocytosis (manual) pO2 47 VBG pH 7.34 VBG pCO2 37 L VBG HCO3 20.4 VBG Total CO2 21.1 L VBG O2 Sat (Calc) 82.1 H VBG Base Excess -5.2 L VBG Potassium 3.7 Glucose 88 Lactate 4.7 H* Crit Value Called To Dr curry Crit Value Called By Dr curry Crit Value Read Back Y Blood Gas Notified Time 1524 Sodium 140 140.0 Potassium 3.2 L Chloride 108 H 108.0 H Carbon Dioxide 23 Anion Gap 12 BUN 7 L Creatinine 0.8 Est GFR ( Amer) > 60 Est GFR (Non-Af Amer) > 60 POC Glucose (mg/dL) 82 Random Glucose 82 Calcium 8.2 L Phosphorus Magnesium Total Bilirubin 1.8 H AST 54 ALT 15 L D Alkaline Phosphatase 216 H Total Protein 6.6 Albumin 2.9 L Globulin 3.7 Albumin/Globulin Ratio 0.8 L Lipase 146 Venous Blood Potassium 3.7 Alcohol, Quantitative < 10 12/09/18 12/10/18 12/10/18 21:32 07:03 07:41 WBC 13.4 H D RBC 3.90 L Hgb 11.8 L Hct 34.7 L MCV 88.8 MCH 30.3 MCHC 34.1 RDW 16.1 H Plt Count 55 L D MPV 9.6 Neut % (Auto) 94.6 H Lymph % (Auto) 1.6 L [place] % (Auto) 3.7 Eos % (Auto) 0.0 Baso % (Auto) 0.1 Neut # (Auto) 12.7 H Lymph # (Auto) 0.2 L [place] # (Auto) 0.5 Eos # (Auto) 0.0 Baso # (Auto) 0.0 Neutrophils % (Manual) 47 L Band Neutrophils % 47 H* Lymphocytes % (Manual) 4 L Monocytes % (Manual) 2 Platelet Estimate Decreased L Poikilocytosis (manual Slight Anisocytosis (manual) Slight pO2 VBG pH VBG pCO2 VBG HCO3 VBG Total CO2 VBG O2 Sat (Calc) VBG Base Excess VBG Potassium Glucose Lactate Crit Value Called To Crit Value Called By Crit Value Read Back Blood Gas Notified Time Sodium Potassium Chloride Carbon Dioxide Anion Gap BUN Creatinine Est GFR ( Amer) Est GFR (Non-Af Amer) POC Glucose (mg/dL) 110 93 Random Glucose Calcium Phosphorus Magnesium Total Bilirubin AST ALT Alkaline Phosphatase Total Protein Albumin Globulin Albumin/Globulin Ratio Lipase Venous Blood Potassium Alcohol, Quantitative 12/10/18 12/10/18 07:41 11:23 WBC RBC Hgb Hct MCV MCH MCHC RDW Plt Count MPV Neut % (Auto) Lymph % (Auto) [place] % (Auto) Eos % (Auto) Baso % (Auto) Neut # (Auto) Lymph # (Auto) [place] # (Auto) Eos # (Auto) Baso # (Auto) Neutrophils % (Manual) Band Neutrophils % Lymphocytes % (Manual) Monocytes % (Manual) Platelet Estimate Poikilocytosis (manual Anisocytosis (manual) pO2 VBG pH VBG pCO2 VBG HCO3 VBG Total CO2 VBG O2 Sat (Calc) VBG Base Excess VBG Potassium Glucose Lactate Crit Value Called To Crit Value Called By Crit Value Read Back Blood Gas Notified Time Sodium 136 Potassium 4.4 Chloride 111 H Carbon Dioxide 18 L Anion Gap 12 BUN 17 Creatinine 1.1 Est GFR ( Amer) > 60 Est GFR (Non-Af Amer) > 60 POC Glucose (mg/dL) 80 Random Glucose 79 Calcium 7.4 L Phosphorus 2.6 Magnesium 1.1 L Total Bilirubin 2.9 H AST 75 H D ALT 26 Alkaline Phosphatase 89 Total Protein 5.7 L Albumin 2.3 L D Globulin 3.4 Albumin/Globulin Ratio 0.7 L Lipase Venous Blood Potassium Alcohol, Quantitative Assessment & Plan (1) Bacteremia Status: Acute (2) Abdominal pain Status: Acute (3) Diarrhea Status: Acute (4) Fever Status: Acute (5) Hepatitis C antibody positive in blood Status: Acute - Assessment and Plan (Free Text) Assessment: treat for bacterial sepsis r/o endocarditis from active IVDU needs rx for Hep C 'consider detox eval
--- NOTE | 2018-12-10 13:10 | VASCLAB ---
Date of service: 12/10/2018 PROCEDURE: Lower Extremity Venous Duplex Exam. HISTORY: lower extremity pain / edema PRIORS: None. TECHNIQUE: Bilateral common femoral, femoral, popliteal and posterior tibial, peroneal and great saphenous veins were evaluated. Flow was assessed with color Doppler, compressibility, assessment of phasic flow and augmentation response. Report prepared by LETA Duke FINDINGS: RIGHT: 1. Common Femoral Vein: 1.1. Compressibility - Fully compressible: Thrombus - None : Flow - Phasic: Augmentation -Normal: Reflux - None. 2. Femoral Vein: 2.1. Compressibility - Fully compressible: Thrombus - None : Flow - Phasic: Augmentation -Normal: Reflux - None. 3. Popliteal Vein: 3.1. Compressibility - Fully compressible: Thrombus - None : Flow - Phasic: Augmentation -Normal: Reflux - None. 4. Posterior Tibial Vein: 4.1. Compressibility - Fully compressible: Thrombus - None: Flow - Phasic: Augmentation -Normal: Reflux - None. 5. Peroneal Vein: 5.1. Compressibility - Fully compressible: Thrombus - None: Flow - Phasic: Augmentation -Normal: Reflux - None. 6. Great Saphenous Vein: 6.1. Compressibility - Fully compressible: Thrombus - None: Flow - Phasic: Augmentation - Normal: Reflux - Mild 3.23s LEFT: 1. Common Femoral Vein: 1.1. Compressibility - Fully compressible: Thrombus - None: Flow - Phasic: Augmentation -Normal: Reflux - None. 2. Femoral Vein: 2.1. Compressibility - Fully compressible: Thrombus - None: Flow - Phasic: Augmentation -Normal: Reflux - None. 3. Popliteal Vein: 3.1. Compressibility - Fully compressible: Thrombus - None : Flow - Phasic: Augmentation -Normal: Reflux - None. 4. Posterior Tibial Vein: 4.1. Compressibility - Fully compressible: Thrombus - None: Flow - Phasic: Augmentation -Normal: Reflux - None. 5. Peroneal Vein: 5.1. Compressibility - Fully compressible: Thrombus - None: Flow - Phasic: Augmentation -Normal: Reflux - None. 6. Great Saphenous Vein: 6.1. Compressibility - Fully compressible: Thrombus - None: Flow - Phasic: Augmentation - Normal: Reflux - Mild 1.79s OTHER FINDINGS: Left: There was a large mass noted in the left groin with minimal vascularity, measuring 4.35 x 2.02 cm., possibly an enlarged lymph node. IMPRESSION: 1. No evidence of deep or superficial vein thrombosis of bilateral lower extremities. 2. Wall thickening noted of bilateral great saphenous veins, with mild valvular incompetence.
--- NOTE | 2018-12-10 13:31 | RAD ---
Date of service: 12/10/2018 HISTORY: r/o free air under the the diaphragm COMPARISON: None available. TECHNIQUE: 1 view obtained. FINDINGS: There is paucity of bowel gas present. Some epigastric gas is present-probably in stomach. . No images labeled upright BOWEL: There is paucity of bowel gas present. No gross distended small smaller large bowel loops noted. BONES: No fracture appreciated. Degenerative changes throughout the thoraco lumbar spine and both hips present. OTHER FINDINGS: Soft tissues notable for large body habitus. IMPRESSION: Limited exam-the AP view including each hemidiaphragm is not labeled upright. Per these images no free subdiaphragmatic air is appreciated.
[2018-12-10 15:30] LABS: HEPATITIS B SURFACE AG Negative (NEGATIVE)
[2018-12-10 15:41] LABS: HEPATITIS A IGM NEGATIVE (NEGATIVE); HEPATITIS B CORE AB NEGATIVE (NEGATIVE)
[2018-12-10 16:08] LABS: HEPATITIS C ANTIBODY REACTIVE (NEGATIVE)
[2018-12-10] MEDS ORDERED: Magnesium Sulfate 1 gm in D5W 1 GM/100 ML BAG IVPB ONE (17:00)
[2018-12-11] MEDS: Piperacillin/Tazobact 3.375 GM in Sodium Chloride 100 ML IVPB SCH ×5 (00:02→23:45)
--- NOTE | 2018-12-11 08:52 | CP.PCM.PCO ---
Physician Communication Note - Physician Communication Note Physician Communication Note: Spoke to RN. Meth 50 mg was confirmed and started.
[2018-12-11 10:28] LABS: BASO % 0.2 % (0.0-2.0); EOS # 0.1 K/uL (0.0-0.7); EOS % 1.2 % (0.0-4.0); HEMOGLOBIN 11.8 g/dL (12.0-18.0); LYMPH # 0.6 K/uL (1.0-4.3); LYMPH % 7.2 % (20.0-40.0); MEAN CELL VOLUME 88.1 fL (80.0-94.0); MEAN CORPUSCULAR HEMOGLOBIN 30.2 pg (27.0-31.0); MEAN CORPUSCULAR HGB CONC 34.3 g/dL (33.0-37.0); MEAN PLATELET VOLUME 8.9 fL (7.2-11.7); MONO # 0.6 K/uL (0.0-0.8); MONO % 6.9 % (0.0-10.0); NEUT # 6.8 K/uL (1.8-7.0); NEUT % 84.5 % (50.0-75.0); PLATELET COUNT 46 K/uL (130-400); RBC 3.91 Mil/uL (4.40-5.90); RED CELL DISTRIBUTION WIDTH 16.6 % (11.5-14.5); WHITE BLOOD COUNT 8.1 K/uL (4.8-10.8)
[2018-12-11 10:54] LABS: ALB/GLOB RATIO 0.7 (1.0-2.1); ALBUMIN 2.2 g/dL (3.5-5.0); ALT/SGPT 37 U/L (21-72); AST/SGOT 86 U/L (17-59); BLOOD UREA NITROGEN 19 mg/dL (9-20); CALCIUM 7.6 mg/dl (8.6-10.4); GFR NON-AFRICAN AMERICAN > 60
[2018-12-11 11:48] LABS: BANDS 41 % (0-2); EOSINOPHIL 2 % (0-4); LYMPHOCYTE 8 % (20-40); MONOCYTE 8 % (0-10); NEUTROPHIL 41 % (50-75); PLATELET ESTIMATE DECREASED (NORMAL); TOTAL CELLS COUNTED 100
[2018-12-11 11:49] LABS: ANISOCYTOSIS SLIGHT; HYPOCHROMIC SLIGHT; MICROCYTOSIS SLIGHT; POIKILOCYTOSIS SLIGHT
[2018-12-11] MEDS: Sodium Chloride 0.9% 1,000 ML IV SCH ×2 (13:49→16:03)
--- NOTE | 2018-12-11 16:10 | CP.PCM.PN ---
Subjective - Date & Time of Evaluation Date of Evaluation: 12/11/18 Time of Evaluation: 10:00 - Subjective Subjective: improving on IV antibiotics await ID and sensitivity of organism Objective - Vital Signs/Intake and Output Vital Signs (last 24 hours): Temp Pulse Resp BP Pulse Ox 97.4 F L 79 20 108/57 L 94 L 12/11/18 07:00 12/11/18 14:56 12/11/18 07:00 12/11/18 07:00 12/11/18 11:00 - Medications Medications: Current Medications Sodium Chloride (Sodium Chloride 0.9%) 1,000 mls @ 100 mls/hr IV .Q10H NELIA Last Admin: 12/11/18 16:03 Dose: Not Given Piperacillin Sod/Tazobactam (Sod 3.375 gm/ Sodium Chloride) 100 mls @ 200 mls/hr IVPB Q6H NELIA; Protocol Last Admin: 12/11/18 11:57 Dose: 200 mls/hr Vancomycin HCl 1 gm/ Sodium (Chloride) 250 mls @ 166.7 mls/hr IVPB Q12H NELIA; Protocol Last Admin: 12/11/18 11:17 Dose: 166.7 mls/hr Ketorolac Tromethamine (Toradol) 15 mg IVP Q6 PRN PRN Reason: Pain, severe (8-10) Last Admin: 12/11/18 09:44 Dose: 15 mg Methadone HCl (Methadone) 50 mg PO DAILY [facility] Ondansetron HCl (Zofran Inj) 4 mg IVP Q8H PRN PRN Reason: Nausea/Vomiting Pantoprazole Sodium (Protonix Inj) 40 mg IVP Q12H NELIA Last Admin: 12/11/18 13:48 Dose: 40 mg - Labs Labs: 12/11/18 10:25 12/11/18 10:25 PT 19.7 SECONDS (9.7-12.2) H 12/09/18 10:46 INR 1.8 12/09/18 10:46 APTT 36 SECONDS (21-34) H 12/09/18 10:46 - Constitutional Appears: Non-toxic, Chronically Ill - Head Exam Head Exam: NORMOCEPHALIC - Eye Exam Eye Exam: absent: Scleral icterus - ENT Exam ENT Exam: Mucous Membranes Dry - Respiratory Exam Respiratory Exam: Decreased Breath Sounds - Cardiovascular Exam Cardiovascular Exam: REGULAR RHYTHM - GI/Abdominal Exam GI & Abdominal Exam: Distended, Soft - Rectal Exam Rectal Exam: Deferred - Exam Exam: NORMAL INSPECTION - Extremities Exam Extremities Exam: absent: Pedal Edema - Back Exam Back Exam: absent: CVA tenderness (L), CVA tenderness (R) - Neurological Exam Neurological Exam: Alert, Awake, Oriented x3 Neuro motor strength exam: Left Upper Extremity: 4, Right Upper Extremity: 4, Left Lower Extremity: 4, Right Lower Extremity: 4 - Psychiatric Exam Psychiatric exam: Depressed - Skin Skin Exam: Erythema Assessment and Plan (1) Bacteremia Status: Acute (2) Abdominal pain Status: Acute (3) Diarrhea Status: Acute (4) Fever Status: Acute (5) Hepatitis C antibody positive in blood Status: Acute - Assessment and Plan (Free Text) Assessment: await I D and sensivibvity' consider echo and repeat blood cultures
--- NOTE | 2018-12-11 17:53 | CP.PCM.CON ---
History of Present Illness - History of Present Illness History of Present Illness: Vascular Surgery Consult for Dr. 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 Kelley was seen and evaluated on 5 tower. Patient states that he has a chronic venous ulcer. Patient states the wound has been improving recently. He reports that has been changing his dressings daily. Patient has history of varicose vein in ankle where he tried to cut it and never healed properly. Patient reports non-complianace with compression stockings and elevation. He does report swelling and redness of LLE. He said it had been present for a few days. Denies fever/chills, headache, chest pain, SOB, numbness/tingling, incontinence, urinary symptoms. PMH: Liver Cirrhosis (secondary to ETOH), previous IVDA (on methadone), Psoriasis PSH: denies All: NKDA Social: Previous ETOH abuse, 1/2 pack per day of cigarettes x15 years, previous heroin abuse, on methadone Review of Systems - Review of Systems All systems: reviewed and no additional remarkable complaints except (as per HPI) Past Patient History - Past Medical History & Family History Past Medical History?: Yes - Past Social History Smoking Status: Light Smoker < 10 Cigarettes Daily - CARDIAC Hx Cardiac Disorders: No - PULMONARY Hx Respiratory Disorders: No - NEUROLOGICAL Hx Neurological Disorder: No - HEENT Hx HEENT Problems: No - RENAL Hx Chronic Kidney Disease: No - ENDOCRINE/METABOLIC Hx Endocrine Disorders: No - HEMATOLOGICAL/ONCOLOGICAL Hx Blood Disorders: No - INTEGUMENTARY Hx Dermatological Problems: No - MUSCULOSKELETAL/RHEUMATOLOGICAL Hx Falls: No - GASTROINTESTINAL Hx Gastrointestinal Disorders: Yes Hx Liver Failure: Yes (liver cirrhosis) - GENITOURINARY/GYNECOLOGICAL Hx Genitourinary Disorders: No - PSYCHIATRIC Hx Substance Use: Yes - SURGICAL HISTORY Hx Surgeries: No - ANESTHESIA Hx Anesthesia: No Meds Allergies/Adverse Reactions: Allergies Allergy/AdvReac Type Severity Reaction Status Date / Time No Known Allergies Allergy Verified 12/09/18 10:26 - Medications Medications: Current Medications Piperacillin Sod/Tazobactam (Sod 3.375 gm/ Sodium Chloride) 100 mls @ 200 mls/hr IVPB Q6H [facility]; Protocol Last Admin: 12/11/18 17:39 Dose: 200 mls/hr Vancomycin HCl 1 gm/ Sodium (Chloride) 250 mls @ 166.7 mls/hr IVPB Q12H [facility]; Protocol Last Admin: 12/11/18 11:17 Dose: 166.7 mls/hr Ketorolac Tromethamine (Toradol) 15 mg IVP Q6 PRN PRN Reason: Pain, severe (8-10) Last Admin: 12/11/18 09:44 Dose: 15 mg Methadone HCl (Methadone) 50 mg PO DAILY [facility] Ondansetron HCl (Zofran Inj) 4 mg IVP Q8H PRN PRN Reason: Nausea/Vomiting Pantoprazole Sodium (Protonix Inj) 40 mg IVP Q12H [facility] Last Admin: 12/11/18 13:48 Dose: 40 mg Physical Exam - Additional Findings Additional findings: - Constitutional Appears: No Acute Distress - Head Exam Head Exam: ATRAUMATIC, NORMAL INSPECTION, NORMOCEPHALIC - Eye Exam Eye Exam: EOMI, Normal appearance, PERRL Pupil Exam: NORMAL ACCOMODATION - ENT Exam ENT Exam: Mucous Membranes Dry - Neck Exam Neck exam: Positive for: Normal Inspection - Respiratory Exam Respiratory Exam: NORMAL BREATHING PATTERN - Cardiovascular Exam Cardiovascular Exam: Regular Rhythm - GI/Abdominal Exam GI & Abdominal Exam: Normal Bowel Sounds, Soft - Extremities Exam Extremities exam: Positive for: pedal edema (+2), pedal pulses present Additional comments: chronic ulcer on left medial malleolus, swelling and redness of LLE that extends to upper thigh, pigment changes, palpable pulses bilaterally - Neurological Exam Neurological exam: Alert, CN II-XII Intact, Oriented x3 - Psychiatric Exam Psychiatric exam: Normal Affect, Normal Mood - Skin Skin Exam: Dry, Warm Results - Vital Signs Recent Vital Signs: Last Vital Signs Temp 97.8 F 12/11/18 15:15 Pulse 77 12/11/18 17:08 Resp 20 12/11/18 15:15 BP 101/69 12/11/18 15:15 Pulse Ox 94 L 12/11/18 16:00 - Labs Result Diagrams: 12/11/18 10:25 12/11/18 10:25 Labs: Laboratory Results - last 24 hr 12/10/18 12/10/18 12/10/18 10:31 14:23 16:46 WBC RBC Hgb Hct MCV MCH MCHC RDW Plt Count MPV Neut % (Auto) Lymph % (Auto) [place] % (Auto) Eos % (Auto) Baso % (Auto) Neut # (Auto) Lymph # (Auto) [place] # (Auto) Eos # (Auto) Baso # (Auto) Neutrophils % (Manual) Band Neutrophils % Lymphocytes % (Manual) Monocytes % (Manual) Eosinophils % (Manual) Platelet Estimate Hypochromasia (manual) Poikilocytosis (manual Anisocytosis (manual) Microcytosis (manual) Sodium Potassium Chloride Carbon Dioxide Anion Gap BUN Creatinine Est GFR ( Amer) Est GFR (Non-Af Amer) POC Glucose (mg/dL) 160 H Random Glucose Calcium Phosphorus Magnesium Total Bilirubin AST ALT Alkaline Phosphatase Total Protein Albumin Globulin Albumin/Globulin Ratio Hepatitis A Ab Total Reactive H Influenza Typ A,B (EIA) Negative for flu a/b 12/10/18 12/11/18 12/11/18 21:23 06:23 10:25 WBC 8.1 RBC 3.91 L Hgb 11.8 L Hct 34.4 L MCV 88.1 MCH 30.2 MCHC 34.3 RDW 16.6 H Plt Count 46 L MPV 8.9 Neut % (Auto) 84.5 H Lymph % (Auto) 7.2 L [place] % (Auto) 6.9 Eos % (Auto) 1.2 Baso % (Auto) 0.2 Neut # (Auto) 6.8 Lymph # (Auto) 0.6 L [place] # (Auto) 0.6 Eos # (Auto) 0.1 Baso # (Auto) 0.0 Neutrophils % (Manual) 41 L Band Neutrophils % 41 H* Lymphocytes % (Manual) 8 L Monocytes % (Manual) 8 Eosinophils % (Manual) 2 Platelet Estimate Decreased L Hypochromasia (manual) Slight Poikilocytosis (manual Slight Anisocytosis (manual) Slight Microcytosis (manual) Slight Sodium Potassium Chloride Carbon Dioxide Anion Gap BUN Creatinine Est GFR ( Amer) Est GFR (Non-Af Amer) POC Glucose (mg/dL) 90 73 Random Glucose Calcium Phosphorus Magnesium Total Bilirubin AST ALT Alkaline Phosphatase Total Protein Albumin Globulin Albumin/Globulin Ratio Hepatitis A Ab Total Influenza Typ A,B (EIA) 12/11/18 12/11/18 12/11/18 10:25 12:25 17:01 WBC RBC Hgb Hct MCV MCH MCHC RDW Plt Count MPV Neut % (Auto) Lymph % (Auto) [place] % (Auto) Eos % (Auto) Baso % (Auto) Neut # (Auto) Lymph # (Auto) [place] # (Auto) Eos # (Auto) Baso # (Auto) Neutrophils % (Manual) Band Neutrophils % Lymphocytes % (Manual) Monocytes % (Manual) Eosinophils % (Manual) Platelet Estimate Hypochromasia (manual) Poikilocytosis (manual Anisocytosis (manual) Microcytosis (manual) Sodium 135 Potassium 3.8 Chloride 108 H Carbon Dioxide 22 Anion Gap 9 L BUN 19 Creatinine 0.9 Est GFR ( Amer) > 60 Est GFR (Non-Af Amer) > 60 POC Glucose (mg/dL) 105 91 Random Glucose 98 D Calcium 7.6 L Phosphorus 1.7 L Magnesium 1.9 Total Bilirubin 3.7 H AST 86 H ALT 37 Alkaline Phosphatase 78 Total Protein 5.5 L Albumin 2.2 L Globulin 3.3 Albumin/Globulin Ratio 0.7 L Hepatitis A Ab Total Influenza Typ A,B (EIA) Assessment & Plan - Assessment and Plan (Free Text) Assessment: 48 M with venous insufficency and chronic venous ulcer Plan: -Symptoms are from venous insufficiency -No vascular surgery intervention needed at this time -Continue elevation and compression stockings -IV ABX -Medical management as per primary -Discussed with Dr. Ang Costa PGY2 - Date & Time Date: 12/11/18 Time: 17:30
[2018-12-12 00:37] LABS: HAV AB (IGM) Nonreactive (Nonreactive)
[2018-12-12] MEDS: Piperacillin/Tazobact 3.375 GM in Sodium Chloride 100 ML IVPB SCH ×3 (05:19→18:16)
[2018-12-12 07:15] LABS: BASO % 0.5 % (0.0-2.0); EOS # 0.2 K/uL (0.0-0.7); EOS % 5.4 % (0.0-4.0); HEMOGLOBIN 11.4 g/dL (12.0-18.0); LYMPH # 0.6 K/uL (1.0-4.3); LYMPH % 13.5 % (20.0-40.0); MEAN CELL VOLUME 86.4 fL (80.0-94.0); MEAN CORPUSCULAR HEMOGLOBIN 30.2 pg (27.0-31.0); MEAN CORPUSCULAR HGB CONC 34.9 g/dL (33.0-37.0); MEAN PLATELET VOLUME 8.5 fL (7.2-11.7); MONO # 0.4 K/uL (0.0-0.8); MONO % 9.4 % (0.0-10.0); NEUT # 3.2 K/uL (1.8-7.0); NEUT % 71.2 % (50.0-75.0); NRBC % 0.1 % (0.0-2.0); RBC 3.77 Mil/uL (4.40-5.90); RED CELL DISTRIBUTION WIDTH 16.5 % (11.5-14.5); WHITE BLOOD COUNT 4.5 K/uL (4.8-10.8)
[2018-12-12 08:01] LABS: ALB/GLOB RATIO 0.7 (1.0-2.1); ALBUMIN 2.2 g/dL (3.5-5.0); ALT/SGPT 40 U/L (21-72); AST/SGOT 76 U/L (17-59); BLOOD UREA NITROGEN 16 mg/dL (9-20); CALCIUM 7.4 mg/dl (8.6-10.4); GFR NON-AFRICAN AMERICAN > 60
--- NOTE | 2018-12-12 14:36 | CP.PCM.PN ---
Subjective - Date & Time of Evaluation Date of Evaluation: 12/12/18 Time of Evaluation: 14:33 - Subjective Subjective: Medicine Progress note for Dr. Burkett's service S/E at bedside Reports uncomfortable sensation on right upper thigh, noted erythema and s welling Denies fevers, chills, chest pain, sob, n/v, constipation or diarrhea, and dysuria. Objective - Vital Signs/Intake and Output Vital Signs (last 24 hours): Temp Pulse Resp BP Pulse Ox 98.3 F 83 20 114/67 97 12/12/18 08:23 12/12/18 13:04 12/12/18 08:23 12/12/18 08:23 12/12/18 08:23 Intake and Output: 12/12/18 12/12/18 06:59 18:59 Intake Total 400 Output Total 200 Balance 200 - Medications Medications: Current Medications Piperacillin Sod/Tazobactam (Sod 3.375 gm/ Sodium Chloride) 100 mls @ 200 mls/hr IVPB Q6H [facility]; Protocol Last Admin: 12/12/18 11:01 Dose: 200 mls/hr Vancomycin HCl 1 gm/ Sodium (Chloride) 250 mls @ 166.7 mls/hr IVPB Q12H [facility]; Protocol Last Admin: 12/12/18 10:05 Dose: 166.7 mls/hr Ketorolac Tromethamine (Toradol) 15 mg IVP Q6 PRN PRN Reason: Pain, severe (8-10) Last Admin: 12/12/18 11:01 Dose: 15 mg Methadone HCl (Methadone) 50 mg PO DAILY [facility] Last Admin: 12/12/18 10:05 Dose: 50 mg Ondansetron HCl (Zofran Inj) 4 mg IVP Q8H PRN PRN Reason: Nausea/Vomiting Pantoprazole Sodium (Protonix Inj) 40 mg IVP Q12H [facility] Last Admin: 12/12/18 13:34 Dose: 40 mg - Labs Labs: 12/12/18 06:56 12/12/18 06:56 PT 19.7 SECONDS (9.7-12.2) H 12/09/18 10:46 INR 1.8 12/09/18 10:46 APTT 36 SECONDS (21-34) H 12/09/18 10:46 - Constitutional Appears: Non-toxic, No Acute Distress - Head Exam Head Exam: NORMAL INSPECTION - Eye Exam Eye Exam: EOMI, Normal appearance - ENT Exam ENT Exam: Mucous Membranes Dry - Respiratory Exam Respiratory Exam: Clear to Ausculation Bilateral, NORMAL BREATHING PATTERN - Cardiovascular Exam Cardiovascular Exam: REGULAR RHYTHM, +S1, +S2 - GI/Abdominal Exam GI & Abdominal Exam: Soft, Normal Bowel Sounds - Extremities Exam Extremities Exam: Normal Inspection. absent: Calf Tenderness, Pedal Edema Additional comments: noted eryhtema and swelling in left upper extremity in thigh region likely phlebitis pedal edema (+2 bilaterally ), pedal pulses present (chronic ulcer on left medial malleolus: 3-inch in diameter, no pus, clean, no foul smell, hemosiderinosis) - Back Exam Back Exam: NORMAL INSPECTION - Neurological Exam Neurological Exam: Alert, Awake, Oriented x3 - Psychiatric Exam Psychiatric exam: Normal Affect, Normal Mood - Skin Skin Exam: Dry, Intact, Normal Color Assessment and Plan - Assessment and Plan (Free Text) Assessment: 48 yo male w/PMH psoriasis and transaminitis (secondary to HCV), is brought to the ED by ambulance for evaluation of abdominal pain, nausea, vomiting, diarrhea and lower back pain which began around 2 hours [employer]. Patient was found to have lactate 4.9, fever, and bands --> CODE SEPSIS was called in ED. Patient subsequently resuscitated with aggressive fluids, started on zosyn. ID was consulted (Dr. Little). Patient subsequently admitted to telemetry. Plan: Sepsis - In the setting of Liver Cirrhosis and Portal Hypertension - Patient has history of cirrhosis and varicosities - stool culture- gram negative teresa - ova and parasite, influenza A/B, C-diff toxin- negative - Hep C Ab reactive - Surgery consulted (Dr. Hinds)- recs appreciated - GI consulted (Dr. Dixon); recommendations appreciated - CXR with no signs of PNA - 12/09 CT abdomen/pelvis revealed: * cirrhotic appearance of liver * 9x14mm nodule at right hemidiaphragm * arophic pancreas * marked splenomegaly * extensive upper abdominal / esophageal varices * thick-walled appearance of distal esophagus * thickening of right colon; possible colitis vs malignant neoplasm * retroperitoneal mesenteric adenopathy; bulky left inguinal adenopathy 2.4m; fluid-filled right inguinal hernia; small fat containing umbilical hernia - Bcx- Group G streptococcus (12/09) and Gram positive cocci (12/09) - Stool cx- gram negative teresa - Urine cx negative - UDS: positive for methadone - Zofran 4mg IV Q6H PRN - Toradol PRN for severe pain - Zosyn Q8H IVPB - Vancomycin IVPB q12 - NPO --> advance to liquid as tolerated - IVF @100cc/hr - Monitor in telemetry -ID following: Dr. Litlte Left Lower Extremity Venous Ulcer 2/2 Stasis - Likely secondary to chronic venous insufficiency - Compression stockings - Ulcer on left lower extremity about 3inches in diameter in left medial malleolus is clean, no oozing. dressing changed in ED - Toradol prn for severe pain - Venous doppler 12/09: no evidence DVT bilaterally. Wall thickening noted of bi lateral great saphenous veins, mild valvular incompetence - Arterial doppler 12/11: no PAD Phlebitis - Warm compresses - Elevate legs - no AC as patient thrombocytoepnic - Compression stocks, DVT ruled on 12-09 - IV toradol q6 prn Hypomagnesemia (resolved) - Mg 1.1 - Replete as needed - F/U AM labs Hypokalemia, resolved - Replete with K+ rider - Replete as needed - Monitor CMP, Mg in AM Abnormal urinalysis - +1 blood, 8 RBC - Urine cx negative Thombocytopenia - 12/10: 55 (down from 86) - Likely 2/2 cirrhosis - Monitor CBC - Avoid Heparin products at this time PPx: - DVT: SCD contraindicated; no lovenox at this time - GI: protonix 40mg IV Q12 Dispo: pending sensitivities for blood and stool cx Discussed with Dr. Kwadwo Newton PGY-1
[2018-12-13] MEDS: Piperacillin/Tazobact 3.375 GM in Sodium Chloride 100 ML IVPB SCH ×3 (00:55→12:57)
[2018-12-13 01:00] VITALS: BP 114/75; PULSE 83; TEMP 99.1; O2SAT 98
--- NOTE | 2018-12-13 07:05 | CP.PCM.PN ---
Subjective - Date & Time of Evaluation Date of Evaluation: 12/13/18 Time of Evaluation: 07:05 Objective - Vital Signs/Intake and Output Vital Signs (last 24 hours): Temp Pulse Resp BP Pulse Ox 99.1 F 83 20 114/75 98 12/12/18 23:35 12/12/18 23:35 12/12/18 23:35 12/12/18 23:35 12/12/18 23:35 Intake and Output: 12/13/18 12/13/18 06:59 18:59 Intake Total 350 Balance 350 - Medications Medications: Current Medications Piperacillin Sod/Tazobactam (Sod 3.375 gm/ Sodium Chloride) 100 mls @ 200 mls/hr IVPB Q6H [facility]; Protocol Last Admin: 12/13/18 04:59 Dose: 200 mls/hr Vancomycin HCl 1 gm/ Sodium (Chloride) 250 mls @ 166.7 mls/hr IVPB Q12H [facility]; Protocol Last Admin: 12/12/18 23:10 Dose: 166.7 mls/hr Ketorolac Tromethamine (Toradol) 15 mg IVP Q6 PRN PRN Reason: Pain, severe (8-10) Last Admin: 12/12/18 11:01 Dose: 15 mg Methadone HCl (Methadone) 50 mg PO DAILY [facility] Last Admin: 12/12/18 10:05 Dose: 50 mg Ondansetron HCl (Zofran Inj) 4 mg IVP Q8H PRN PRN Reason: Nausea/Vomiting Pantoprazole Sodium (Protonix Inj) 40 mg IVP Q12H [facility] Last Admin: 12/13/18 02:18 Dose: 40 mg - Labs Labs: 12/12/18 06:56 12/12/18 06:56 PT 19.7 SECONDS (9.7-12.2) H 12/09/18 10:46 INR 1.8 12/09/18 10:46 APTT 36 SECONDS (21-34) H 12/09/18 10:46
[2018-12-13 07:34] LABS: BASO % 0.3 % (0.0-2.0); EOS # 0.3 K/uL (0.0-0.7); HEMOGLOBIN 11.6 g/dL (12.0-18.0); LYMPH # 1.2 K/uL (1.0-4.3); LYMPH % 18.9 % (20.0-40.0); MEAN CELL VOLUME 85.4 fL (80.0-94.0); MEAN CORPUSCULAR HEMOGLOBIN 29.8 pg (27.0-31.0); MEAN CORPUSCULAR HGB CONC 34.9 g/dL (33.0-37.0); MEAN PLATELET VOLUME 8.4 fL (7.2-11.7); MONO # 0.9 K/uL (0.0-0.8); NEUT # 4.1 K/uL (1.8-7.0); NEUT % 62.8 % (50.0-75.0); NRBC % 0.1 % (0.0-2.0); RBC 3.88 Mil/uL (4.40-5.90); RED CELL DISTRIBUTION WIDTH 16.3 % (11.5-14.5); WHITE BLOOD COUNT 6.5 K/uL (4.8-10.8)
[2018-12-13 08:34] LABS: ALB/GLOB RATIO 0.7 (1.0-2.1); ALBUMIN 2.3 g/dL (3.5-5.0); ALT/SGPT 34 U/L (21-72); AST/SGOT 70 U/L (17-59); BLOOD UREA NITROGEN 9 mg/dL (9-20); CALCIUM 7.2 mg/dl (8.6-10.4); GFR NON-AFRICAN AMERICAN > 60
[2018-12-13] MEDS ORDERED: Iodixanol 320 MG/ML 100 ML BOTTLE IV ONE (09:56)
--- NOTE | 2018-12-13 11:09 | VASCLAB ---
Date of service: 12/12/2018 STUDY DESCRIPTION: Lower Extremity Arterial Exam (PVR). HISTORY: Leg pain PRIORS: None. TECHNIQUE: Pulse volume recording waveforms and segmental pressures of bilateral lower extremities at multiple levels were obtained. Ankle Brachial Indices (ABIs) were calculated. Report prepared by LETA Duke RIGHT LOWER EXTREMITY: * Brachial artery: Unable to obtain. * Low thigh: PVR waveform: Pulsatile * Calf: Pressure - 157 mmHg: Ratio - 1.28 PVR waveform: Pulsatile * Posterior tibial Artery: Pressure - 160 mmHg: Ratio - 1.30 PVR waveform: Pulsatile * Dorsalis pedis Artery: Pressure - 160 mmHg: Ratio - 1.30 PVR waveform: Pulsatile Ankle brachial index (FAUSTINO): 1.30 LEFT LOWER EXTREMITY: * Brachial artery: Pressure - 123 mmHg. * Low thigh: PVR waveform: Pulsatile * Calf: Pressure - 149 mmHg: Ratio - 1.21 PVR waveform: Pulsatile * Posterior tibial Artery: Unable to obtain/ wound area. * Dorsalis pedis Artery: Pressure - 155 mmHg: Ratio - 1.26 PVR waveform: Pulsatile Ankle brachial index (FAUSTINO): 1.26 OTHER FINDINGS: None. IMPRESSION: Right: There was no evidence of hemodynamically significant arterial insufficiency in the right lower extremity. Left: There was no evidence of hemodynamically significant arterial insufficiency in the left lower extremity.
--- NOTE | 2018-12-13 12:00 | CT ---
Date of service: 12/13/2018 PROCEDURE: CT Abdomen and Pelvis with and without intravenous contrast HISTORY: indeterminate lesion left lobe live COMPARISON: CT abdomen/pelvis 12/09/2018 TECHNIQUE: Axial images of the abdomen were obtained in the pre contrast, hepatic arterial, portal venous and delayed phases of enhancement. Coronal and sagittal reformats were generated. Contrast dose: 100 mL Visipaque 320 Radiation dose: Total exam DLP = 3394.65 mGy-cm. This CT exam was performed using one or more of the following dose reduction techniques: Automated exposure control, adjustment of the mA and/or kV according to patient size, and/or use of iterative reconstruction technique. FINDINGS: LOWER THORAX: Small bilateral pleural effusion. Bilateral lower lobe compressive atelectasis. Small hiatal hernia. Distal esophageal varices. LIVER: Nodular hepatic contour. No discrete hepatic mass. No biliary dilatation. Normal appearance of the portal vein branches. Three hepatic veins demonstrated. GALLBLADDER AND BILE DUCTS: Diffuse nonspecific mural thickening of the gallbladder. No calcified gallstones. PANCREAS: Unremarkable. No gross lesion or ductal dilatation. SPLEEN: Splenomegaly. The spleen measures approximately 22 cm in greatest dimension. No focal mass. ADRENALS: Unremarkable. No mass. KIDNEYS AND URETERS: Unremarkable. No hydronephrosis. No solid mass. VASCULATURE: No evidence of abdominal aortic aneurysm. There are perigastric varices. Probable splenorenal varices. There is no atherosclerotic calcification of the abdominal aorta. BOWEL: No bowel obstruction. Incidentally noted is mild circumferential mural thickening of the inferior rectum. Further evaluation is advised. APPENDIX: Normal appendix. PERITONEUM: Ascites. Right hydrocele likely secondary to patent right processus vaginalis. LYMPH NODES: Unremarkable. No enlarged lymph nodes. BLADDER: Nondistended REPRODUCTIVE: Unremarkable prostate BONES: No acute fracture. OTHER FINDINGS: None. IMPRESSION: No evidence of hepatic neoplasm. Hepatic cirrhosis. Esophageal varices. Perigastric varices. Ascites. Splenomegaly.
--- NOTE | 2018-12-13 12:58 | CP.PCM.DIS ---
Provider - Provider Date of Admission: 12/11/18 16:50 Attending physician: Migel Burkett Jr, MD Primary care physician: Dr. Burkett Consults: 12/09/18 15:07 Gastroenterology Consult Routine Comment: Consulting Provider: Kenn Dixon Consulting Physician: Kenn Dixon Reason for Consult: Cirhosiss, esophageal varices, colitis vs malignant neoplasm Infectious Disease Consult Routine Comment: Consulting Provider: Waldemar Little Consulting Physician: Waldemar Little Reason for Consult: sepsis - possible colitis 12/09/18 23:20 Nursing Referral for Wound Care Routine Comment: Physician Instructions: Reason For Exam: left foot , ankle ulcer. 12/11/18 10:31 Physician Consult Routine Comment: Consulting Provider: Scar Fry Jr. Consulting Physician: Scar Fry Jr. Reason for Consult: possible arterial disease in the setting of venous insufficiency 12/12/18 14:48 Physician Consult Routine Comment: Consulting Provider: Jeremiah Key Consulting Physician: Jeremiah Key Reason for Consult: Hepatitis C infection non treated; possible liver cirhhosis on imagi Time Spent in preparation of Discharge (in minutes): 45 Hospital Course - Lab Results Lab Results: Micro Results 12/09/18 13:32 Blood Blood Culture - Final Group G Streptococcus 12/09/18 13:32 Blood Gram Stain - Final 12/11/18 14:29 Stool Stool Culture - Final NO SALMONELLA, SHIGELLA OR CAMPYLOBACTER ISOLATED. 12/10/18 17:30 Blood-Venous Blood Culture - Preliminary NO GROWTH AFTER 48 HOURS 12/11/18 14:29 Stool Ova and Parasite Concentrate Exam - Final 12/10/18 14:00 Blood-Venous Blood Culture - Preliminary NO GROWTH AFTER 48 HOURS 12/09/18 13:32 Blood S.aureus & Coag-Neg Staph PNA FISH - Final 12/09/18 13:32 Blood Blood Culture - Final Group G Streptococcus 12/09/18 13:32 Blood Gram Stain - Final 12/09/18 11:40 Urine Random Urine Culture - Final No Growth (<1,000 CFU/ML) Most Recent Lab Values WBC 6.5 K/uL (4.8-10.8) 12/13/18 07:17 RBC 3.88 Mil/uL (4.40-5.90) L 12/13/18 07:17 Hgb 11.6 g/dL (12.0-18.0) L 12/13/18 07:17 Hct 33.1 % (35.0-51.0) L 12/13/18 07:17 MCV 85.4 fL (80.0-94.0) 12/13/18 07:17 MCH 29.8 pg (27.0-31.0) 12/13/18 07:17 MCHC 34.9 g/dL (33.0-37.0) 12/13/18 07:17 RDW 16.3 % (11.5-14.5) H 12/13/18 07:17 Plt Count 52 K/uL (130-400) L 12/13/18 07:17 MPV 8.4 fL (7.2-11.7) 12/13/18 07:17 Neut % (Auto) 62.8 % (50.0-75.0) 12/13/18 07:17 Lymph % (Auto) 18.9 % (20.0-40.0) L 12/13/18 07:17 [place] % (Auto) 14.0 % (0.0-10.0) H 12/13/18 07:17 Eos % (Auto) 4.0 % (0.0-4.0) 12/13/18 07:17 Baso % (Auto) 0.3 % (0.0-2.0) 12/13/18 07:17 Neut # (Auto) 4.1 K/uL (1.8-7.0) 12/13/18 07:17 Lymph # (Auto) 1.2 K/uL (1.0-4.3) 12/13/18 07:17 [place] # (Auto) 0.9 K/uL (0.0-0.8) H 12/13/18 07:17 Eos # (Auto) 0.3 K/uL (0.0-0.7) 12/13/18 07:17 Baso # (Auto) 0.0 K/uL (0.0-0.2) 12/13/18 07:17 Neutrophils % (Manual) 41 % (50-75) L 12/11/18 10:25 Band Neutrophils % 41 % (0-2) H* 12/11/18 10:25 Lymphocytes % (Manual) 8 % (20-40) L 12/11/18 10:25 Monocytes % (Manual) 8 % (0-10) 12/11/18 10:25 Eosinophils % (Manual) 2 % (0-4) 12/11/18 10:25 Myelocytes % 1 % (0-0) H 12/09/18 10:46 Platelet Estimate Decreased (NORMAL) L 12/11/18 10:25 Hypochromasia (manual) Slight 12/11/18 10:25 Poikilocytosis (manual Slight 12/11/18 10:25 Anisocytosis (manual) Slight 12/11/18 10:25 Microcytosis (manual) Slight 12/11/18 10:25 PT 19.7 SECONDS (9.7-12.2) H 12/09/18 10:46 INR 1.8 12/09/18 10:46 APTT 36 SECONDS (21-34) H 12/09/18 10:46 pO2 47 mm/Hg (30-55) 12/09/18 15:17 VBG pH 7.34 (7.32-7.43) 12/09/18 15:17 VBG pCO2 37 mmHg (40-60) L 12/09/18 15:17 VBG HCO3 20.4 mmol/L 12/09/18 15:17 VBG Total CO2 21.1 mmol/L (22-28) L 12/09/18 15:17 VBG O2 Sat (Calc) 82.1 % (40-65) H 12/09/18 15:17 VBG Base Excess -5.2 mmol/L (0.0-2.0) L 12/09/18 15:17 VBG Potassium 3.7 mmol/L (3.6-5.2) 12/09/18 15:17 Sodium 140.0 mmol/l (132-148) 12/09/18 15:17 Chloride 108.0 mmol/L (98-107) H 12/09/18 15:17 Glucose 88 mg/dl (75-110) 12/09/18 15:17 Lactate 4.7 mmol/L (0.7-2.1) H* 12/09/18 15:17 Crit Value Called To Dr curry 12/09/18 15:17 Crit Value Called By Dr curry 12/09/18 15:17 Crit Value Read Back Y 12/09/18 15:17 Blood Gas Notified Time 1524 12/09/18 15:17 Sodium 138 mmol/L (132-148) 12/13/18 07:17 Potassium 3.6 mmol/L (3.6-5.2) 12/13/18 07:17 Chloride 106 mmol/L (98-107) 12/13/18 07:17 Carbon Dioxide 25 mmol/L (22-30) 12/13/18 07:17 Anion Gap 11 (10-20) 12/13/18 07:17 BUN 9 mg/dL (9-20) 12/13/18 07:17 Creatinine 0.8 mg/dL (0.8-1.5) 12/13/18 07:17 Est GFR ( Amer) > 60 12/13/18 07:17 Est GFR (Non-Af Amer) > 60 12/13/18 07:17 POC Glucose (mg/dL) 75 mg/dL (65-110) 12/13/18 11:17 Random Glucose 54 mg/dL (75-110) L D 12/13/18 07:17 Calcium 7.2 mg/dl (8.6-10.4) L 12/13/18 07:17 Phosphorus 3.0 mg/dL (2.5-4.5) 12/13/18 07:17 Magnesium 1.6 mg/dL (1.6-2.3) 12/13/18 07:17 Total Bilirubin 4.5 mg/dL (0.2-1.3) H 12/13/18 07:17 AST 70 U/L (17-59) H 12/13/18 07:17 ALT 34 U/L (21-72) 12/13/18 07:17 Alkaline Phosphatase 113 U/L (38-126) 12/13/18 07:17 Total Protein 5.8 g/dL (6.3-8.3) L 12/13/18 07:17 Albumin 2.3 g/dL (3.5-5.0) L 12/13/18 07:17 Globulin 3.5 gm/dL (2.2-3.9) 12/13/18 07:17 Albumin/Globulin Ratio 0.7 (1.0-2.1) L 12/13/18 07:17 Lipase 146 U/L (23-300) 12/09/18 10:46 Venous Blood Potassium 3.7 mmol/L (3.6-5.2) 12/09/18 15:17 Urine Color Yellow (YELLOW) 12/09/18 11:40 Urine Clarity Hazy (Clear) 12/09/18 11:40 Urine pH 6.0 (5.0-8.0) 12/09/18 11:40 Ur Specific [place] 1.009 (1.003-1.030) 12/09/18 11:40 Urine Protein Negative mg/dL (NEGATIVE) 12/09/18 11:40 Urine Glucose (UA) Normal mg/dL (Normal) 12/09/18 11:40 Urine Ketones Negative mg/dL (NEGATIVE) 12/09/18 11:40 Urine Blood 1+ (NEGATIVE) H 12/09/18 11:40 Urine Nitrate Negative (NEGATIVE) 12/09/18 11:40 Urine Bilirubin Negative (NEGATIVE) 12/09/18 11:40 Urine Urobilinogen 2.0 mg/dL (0.2-1.0) 12/09/18 11:40 Ur Leukocyte Esterase Neg Jhonathan/uL (Negative) 12/09/18 11:40 Urine WBC (Auto) 2 /hpf (0-5) 12/09/18 11:40 Urine RBC (Auto) 8 /hpf (0-3) H 12/09/18 11:40 Ur Squamous Epith Cells 1 /hpf (0-5) 12/09/18 11:40 Vancomycin Trough 6.9 ug/mL (5.0-10.0) 12/12/18 06:56 Urine Opiates Screen Negative (NEGATIVE) 12/09/18 11:40 Urine Methadone Screen Positive (NEGATIVE) H 12/09/18 11:40 Ur Barbiturates Screen Negative (NEGATIVE) 12/09/18 11:40 Ur Phencyclidine Scrn Negative (NEGATIVE) 12/09/18 11:40 Ur Amphetamines Screen Negative (NEGATIVE) 12/09/18 11:40 U Benzodiazepines Scrn Negative (NEGATIVE) 12/09/18 11:40 U Oth Cocaine Metabols Negative (NEGATIVE) 12/09/18 11:40 U Cannabinoids Screen Negative (NEGATIVE) 12/09/18 11:40 Alcohol, Quantitative < 10 mg/dl (0-10) 12/09/18 10:46 Heparin-induced Plt Ab Positive (Negative) H 12/10/18 14:00 Hep-Induced Plt Ab Cmmt 0.649 12/10/18 14:00 HIPA Patient OD 0.661 12/10/18 14:00 C. difficile Ag & Toxin Negative (NEGATIVE) 12/11/18 14:29 Hepatitis A IgM Ab Nonreactive (Nonreactive) 12/10/18 14:23 Hepatitis A Ab Total Reactive (Nonreactive) H 12/10/18 14:23 Hep Bs Antigen Negative (NEGATIVE) 12/10/18 14:23 Hep B Core IgM Ab Negative (NEGATIVE) 12/10/18 14:23 Hepatitis C Antibody Reactive (NEGATIVE) 12/10/18 14:23 HIV 1&2 Antibody Screen Negative (NEGATIVE) 12/10/18 14:23 Influenza Typ A,B (EIA) Negative for flu a/b (NEGATIVE) 12/10/18 10:31 Discharge Exam - Head Exam Head Exam: NORMAL INSPECTION Discharge Plan - Discharge Medications Prescriptions: Ciprofloxacin [Cipro] 500 mg PO BID #20 tab - Follow Up Plan Condition: SERIOUS Disposition: HOME/ ROUTINE Instructions: Ciprofloxacin (Systemic), Sepsis, Adult (DC) Additional Instructions: Follow-up with your PMD (Dr. Espinoza witin 3-5 days of being discharged from the hospital You were prescribed a new medication (antibiotic). Please complete the entire course of the following antibiotic: Cipro 500mg take 1 tab by mouth twice daily for 10 days If your symptoms return, go to your nearest emergency department immediately
--- NOTE | 2018-12-13 13:55 | CP.PCM.CON ---
History of Present Illness - History of Present Illness History of Present Illness: 48 male admitted for lower extremity cellulitis secondary to venous stasis. He has a history of cirrhosis and was seeing Eagle Jaramillo at [facility] in the [place]. He has a history of heavy alcohol use, but states he has been abstinent for over 10 years. He also note having hepatitis C exposure. It is unclear if he is viremic. He notes he was told he dosen't need to be treated and hius body was attacking his liver. 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 Past Patient History - Past Medical History & Family History Past Medical History?: Yes - Past Social History Smoking Status: Light Smoker < 10 Cigarettes Daily - CARDIAC Hx Cardiac Disorders: No - PULMONARY Hx Respiratory Disorders: No - NEUROLOGICAL Hx Neurological Disorder: No - HEENT Hx HEENT Problems: No - RENAL Hx Chronic Kidney Disease: No - ENDOCRINE/METABOLIC Hx Endocrine Disorders: No - HEMATOLOGICAL/ONCOLOGICAL Hx Blood Disorders: No - INTEGUMENTARY Hx Dermatological Problems: No - MUSCULOSKELETAL/RHEUMATOLOGICAL Hx Falls: No - GASTROINTESTINAL Hx Gastrointestinal Disorders: Yes Hx Liver Failure: Yes (liver cirrhosis) - GENITOURINARY/GYNECOLOGICAL Hx Genitourinary Disorders: No - PSYCHIATRIC Hx Substance Use: Yes - SURGICAL HISTORY Hx Surgeries: No - ANESTHESIA Hx Anesthesia: No Meds Home Medications: Home Medication List Medication Instructions Recorded Confirmed Type Ciprofloxacin [Cipro] 500 mg PO BID #20 tab 12/13/18 Rx Allergies/Adverse Reactions: Allergies Allergy/AdvReac Type Severity Reaction Status Date / Time No Known Allergies Allergy Verified 12/09/18 10:26 - Medications Medications: Current Medications Piperacillin Sod/Tazobactam (Sod 3.375 gm/ Sodium Chloride) 100 mls @ 200 mls/hr IVPB Q6H NELIA; Protocol Last Admin: 12/13/18 04:59 Dose: 200 mls/hr Vancomycin HCl 1 gm/ Sodium (Chloride) 250 mls @ 166.7 mls/hr IVPB Q12H NELIA; Protocol Last Admin: 12/13/18 11:20 Dose: 166.7 mls/hr Ketorolac Tromethamine (Toradol) 15 mg IVP Q6 PRN PRN Reason: Pain, severe (8-10) Last Admin: 12/12/18 11:01 Dose: 15 mg Methadone HCl (Methadone) 50 mg PO DAILY NELIA Last Admin: 12/13/18 11:01 Dose: 50 mg Ondansetron HCl (Zofran Inj) 4 mg IVP Q8H PRN PRN Reason: Nausea/Vomiting Pantoprazole Sodium (Protonix Inj) 40 mg IVP Q12H [facility] Last Admin: 12/13/18 02:18 Dose: 40 mg Physical Exam - Constitutional Appears: Well, No Acute Distress - Head Exam Head Exam: ATRAUMATIC - Eye Exam Eye Exam: Scleral icterus Pupil Exam: PERRL - Neck Exam Neck exam: Positive for: Full Rom - Respiratory Exam Respiratory Exam: Clear to Auscultation Bilateral - Cardiovascular Exam Cardiovascular Exam: REGULAR RHYTHM - GI/Abdominal Exam GI & Abdominal Exam: Firm, Normal Bowel Sounds Additional comments: moderately obese - Rectal Exam Rectal Exam: Deferred - Extremities Exam Extremities exam: Positive for: full ROM Additional comments: multiple tattoos - Neurological Exam Neurological exam: Alert, CN II-XII Intact, Oriented x3 - Psychiatric Exam Psychiatric exam: Normal Affect, Normal Mood - Skin Additional comments: multiple tattoos Results - Vital Signs Recent Vital Signs: Last Vital Signs Temp 99.1 F 12/12/18 23:35 Pulse 83 12/12/18 23:35 Resp 20 12/12/18 23:35 BP 114/75 12/12/18 23:35 Pulse Ox 98 12/12/18 23:35 - Labs Result Diagrams: 12/13/18 07:17 12/13/18 07:17 Labs: Laboratory Results - last 24 hr 12/10/18 12/10/18 12/12/18 14:00 14:00 16:31 WBC RBC Hgb Hct MCV MCH MCHC RDW Plt Count MPV Neut % (Auto) Lymph % (Auto) [place] % (Auto) Eos % (Auto) Baso % (Auto) Neut # (Auto) Lymph # (Auto) [place] # (Auto) Eos # (Auto) Baso # (Auto) Sodium Potassium Chloride Carbon Dioxide Anion Gap BUN Creatinine Est GFR ( Amer) Est GFR (Non-Af Amer) POC Glucose (mg/dL) 68 Random Glucose Calcium Phosphorus Magnesium Total Bilirubin AST ALT Alkaline Phosphatase Total Protein Albumin Globulin Albumin/Globulin Ratio Heparin-induced Plt Ab Positive H Positive H Hep-Induced Plt Ab Cmmt 0.649 HIPA Patient OD 0.661 0412/12/18 12/12/18 16:32 19:37 21:28 WBC RBC Hgb Hct MCV MCH MCHC RDW Plt Count MPV Neut % (Auto) Lymph % (Auto) [place] % (Auto) Eos % (Auto) Baso % (Auto) Neut # (Auto) Lymph # (Auto) [place] # (Auto) Eos # (Auto) Baso # (Auto) Sodium Potassium Chloride Carbon Dioxide Anion Gap BUN Creatinine Est GFR ( Amer) Est GFR (Non-Af Amer) POC Glucose (mg/dL) 60 L 100 88 Random Glucose Calcium Phosphorus Magnesium Total Bilirubin AST ALT Alkaline Phosphatase Total Protein Albumin Globulin Albumin/Globulin Ratio Heparin-induced Plt Ab Hep-Induced Plt Ab Cmmt HIPA Patient OD 12/13/18 12/13/18 12/13/18 06:45 06:46 07:17 WBC 6.5 RBC 3.88 L Hgb 11.6 L Hct 33.1 L MCV 85.4 MCH 29.8 MCHC 34.9 RDW 16.3 H Plt Count 52 L MPV 8.4 Neut % (Auto) 62.8 Lymph % (Auto) 18.9 L [place] % (Auto) 14.0 H Eos % (Auto) 4.0 Baso % (Auto) 0.3 Neut # (Auto) 4.1 Lymph # (Auto) 1.2 [place] # (Auto) 0.9 H Eos # (Auto) 0.3 Baso # (Auto) 0.0 Sodium Potassium Chloride Carbon Dioxide Anion Gap BUN Creatinine Est GFR ( Amer) Est GFR (Non-Af Amer) POC Glucose (mg/dL) 55 L 55 L Random Glucose Calcium Phosphorus Magnesium Total Bilirubin AST ALT Alkaline Phosphatase Total Protein Albumin Globulin Albumin/Globulin Ratio Heparin-induced Plt Ab Hep-Induced Plt Ab Cmmt HIPA Patient OD 12/13/18 12/13/18 12/13/18 07:17 07:21 11:17 WBC RBC Hgb Hct MCV MCH MCHC RDW Plt Count MPV Neut % (Auto) Lymph % (Auto) [place] % (Auto) Eos % (Auto) Baso % (Auto) Neut # (Auto) Lymph # (Auto) [place] # (Auto) Eos # (Auto) Baso # (Auto) Sodium 138 Potassium 3.6 Chloride 106 Carbon Dioxide 25 Anion Gap 11 BUN 9 Creatinine 0.8 Est GFR ( Amer) > 60 Est GFR (Non-Af Amer) > 60 POC Glucose (mg/dL) 80 75 Random Glucose 54 L D Calcium 7.2 L Phosphorus 3.0 Magnesium 1.6 Total Bilirubin 4.5 H AST 70 H ALT 34 Alkaline Phosphatase 113 Total Protein 5.8 L Albumin 2.3 L Globulin 3.5 Albumin/Globulin Ratio 0.7 L Heparin-induced Plt Ab Hep-Induced Plt Ab Cmmt HIPA Patient OD - Imaging and Cardiology CT scan - abdomen Status: Image reviewed by me Additional comment: cirrhosis, varices, splenomegaly Assessment & Plan - Assessment and Plan (Free Text) Assessment: Cirrhosis of the liver, possibly due HCV infection, however the patient states he was told he doesn't require treatment, and his body is attacking the liver. It may be possible he also has autoimmune hepatitis. His current MELD is about 18, thus he would wait over a year for a liver transplant. Clinically he has no encephalopthy or ascites. His multiphase CT scan show no suspicious masses for HCC. Plan: Obtain HCV RNA with genotype. Will also order PHOEBE and other autoimmune serology. If he is HCV RNA positive, he should be treated. He will be followed in office, and then referred to a liver transplant program. He should also have and upper endoscopy to determine if he has varices. - Date & Time Date: 12/13/18 Time: 13:46
--- NOTE | 2018-12-13 14:36 | CP.PCM.PN ---
Subjective - Date & Time of Evaluation Date of Evaluation: 12/13/18 Time of Evaluation: 08:00 - Subjective Subjective: seen and examined on rounds no new complaints MARIELA rx in progress labs reviewed orders signed Objective - Vital Signs/Intake and Output Vital Signs (last 24 hours): Temp Pulse Resp BP Pulse Ox 99.1 F 83 20 114/75 98 12/12/18 23:35 12/12/18 23:35 12/12/18 23:35 12/12/18 23:35 12/12/18 23:35 Intake and Output: 12/13/18 12/13/18 06:59 18:59 Intake Total 350 Balance 350 - Medications Medications: Current Medications Piperacillin Sod/Tazobactam (Sod 3.375 gm/ Sodium Chloride) 100 mls @ 200 mls/hr IVPB Q6H NELIA; Protocol Last Admin: 12/13/18 12:57 Dose: 200 mls/hr Vancomycin HCl 1 gm/ Sodium (Chloride) 250 mls @ 166.7 mls/hr IVPB Q12H NELIA; Protocol Last Admin: 12/13/18 11:20 Dose: 166.7 mls/hr Ketorolac Tromethamine (Toradol) 15 mg IVP Q6 PRN PRN Reason: Pain, severe (8-10) Last Admin: 12/12/18 11:01 Dose: 15 mg Methadone HCl (Methadone) 50 mg PO DAILY [facility] Last Admin: 12/13/18 11:01 Dose: 50 mg Ondansetron HCl (Zofran Inj) 4 mg IVP Q8H PRN PRN Reason: Nausea/Vomiting Pantoprazole Sodium (Protonix Inj) 40 mg IVP Q12H [facility]ELIA Last Admin: 12/13/18 14:05 Dose: 40 mg - Labs Labs: 12/13/18 07:17 12/13/18 07:17 PT 19.7 SECONDS (9.7-12.2) H 12/09/18 10:46 INR 1.8 12/09/18 10:46 APTT 36 SECONDS (21-34) H 12/09/18 10:46 - Constitutional Appears: Non-toxic, Chronically Ill - Head Exam Head Exam: NORMOCEPHALIC - Eye Exam Eye Exam: absent: Scleral icterus - ENT Exam ENT Exam: Mucous Membranes Dry - Neck Exam Neck Exam: absent: Lymphadenopathy - Respiratory Exam Respiratory Exam: Decreased Breath Sounds - Cardiovascular Exam Cardiovascular Exam: REGULAR RHYTHM - GI/Abdominal Exam GI & Abdominal Exam: Distended, Soft Assessment and Plan (1) Bacteremia Status: Acute (2) Abdominal pain Status: Acute (3) Diarrhea Status: Acute (4) Fever Status: Acute (5) Hepatitis C antibody positive in blood Status: Acute - Assessment and Plan (Free Text) Assessment: cont rx as out pt
--- NOTE | 2018-12-13 16:23 | CP.PCM.DIS ---
Provider - Provider Date of Admission: 12/11/18 16:50 Attending physician: Migel Burkett Jr, MD Primary care physician: Dr. Burkett Consults: 12/09/18 15:07 Gastroenterology Consult Routine Comment: Consulting Provider: Kenn Dixon Consulting Physician: Kenn Dixon Reason for Consult: Cirhosiss, esophageal varices, colitis vs malignant neoplasm Infectious Disease Consult Routine Comment: Consulting Provider: Waldemar Little Consulting Physician: Waldemar Little Reason for Consult: sepsis - possible colitis 12/09/18 23:20 Nursing Referral for Wound Care Routine Comment: Physician Instructions: Reason For Exam: left foot , ankle ulcer. 12/11/18 10:31 Physician Consult Routine Comment: Consulting Provider: Scar Fry Jr. Consulting Physician: Scar Fry Jr. Reason for Consult: possible arterial disease in the setting of venous insufficiency 12/12/18 14:48 Physician Consult Routine Comment: Consulting Provider: Jeremiah Key Consulting Physician: Jeremiah Key Reason for Consult: Hepatitis C infection non treated; possible liver cirhhosis on imagi Time Spent in preparation of Discharge (in minutes): 45 Diagnosis - Discharge Diagnosis (1) Abdominal pain Status: Acute Priority: Medium (2) Hepatitis C antibody positive in blood Status: Acute Priority: Medium (3) Bacteremia Status: Acute Priority: Medium (4) Diarrhea Status: Acute Priority: Medium (5) Chronic venous insufficiency Status: Acute Priority: Medium Hospital Course - Lab Results Lab Results: Micro Results 12/10/18 14:00 Blood-Venous Blood Culture - Preliminary NO GROWTH AFTER 3 DAYS 12/09/18 13:32 Blood Blood Culture - Final Group G Streptococcus 12/09/18 13:32 Blood Gram Stain - Final 12/11/18 14:29 Stool Stool Culture - Final NO SALMONELLA, SHIGELLA OR CAMPYLOBACTER ISOLATED. 12/10/18 17:30 Blood-Venous Blood Culture - Preliminary NO GROWTH AFTER 48 HOURS 12/11/18 14:29 Stool Ova and Parasite Concentrate Exam - Final 12/09/18 13:32 Blood S.aureus & Coag-Neg Staph PNA FISH - Final 12/09/18 13:32 Blood Blood Culture - Final Group G Streptococcus 12/09/18 13:32 Blood Gram Stain - Final 12/09/18 11:40 Urine Random Urine Culture - Final No Growth (<1,000 CFU/ML) Most Recent Lab Values WBC 6.5 K/uL (4.8-10.8) 12/13/18 07:17 RBC 3.88 Mil/uL (4.40-5.90) L 12/13/18 07:17 Hgb 11.6 g/dL (12.0-18.0) L 12/13/18 07:17 Hct 33.1 % (35.0-51.0) L 12/13/18 07:17 MCV 85.4 fL (80.0-94.0) 12/13/18 07:17 MCH 29.8 pg (27.0-31.0) 12/13/18 07:17 MCHC 34.9 g/dL (33.0-37.0) 12/13/18 07:17 RDW 16.3 % (11.5-14.5) H 12/13/18 07:17 Plt Count 52 K/uL (130-400) L 12/13/18 07:17 MPV 8.4 fL (7.2-11.7) 12/13/18 07:17 Neut % (Auto) 62.8 % (50.0-75.0) 12/13/18 07:17 Lymph % (Auto) 18.9 % (20.0-40.0) L 12/13/18 07:17 [place] % (Auto) 14.0 % (0.0-10.0) H 12/13/18 07:17 Eos % (Auto) 4.0 % (0.0-4.0) 12/13/18 07:17 Baso % (Auto) 0.3 % (0.0-2.0) 12/13/18 07:17 Neut # (Auto) 4.1 K/uL (1.8-7.0) 12/13/18 07:17 Lymph # (Auto) 1.2 K/uL (1.0-4.3) 12/13/18 07:17 [place] # (Auto) 0.9 K/uL (0.0-0.8) H 12/13/18 07:17 Eos # (Auto) 0.3 K/uL (0.0-0.7) 12/13/18 07:17 Baso # (Auto) 0.0 K/uL (0.0-0.2) 12/13/18 07:17 Neutrophils % (Manual) 41 % (50-75) L 12/11/18 10:25 Band Neutrophils % 41 % (0-2) H* 12/11/18 10:25 Lymphocytes % (Manual) 8 % (20-40) L 12/11/18 10:25 Monocytes % (Manual) 8 % (0-10) 12/11/18 10:25 Eosinophils % (Manual) 2 % (0-4) 12/11/18 10:25 Myelocytes % 1 % (0-0) H 12/09/18 10:46 Platelet Estimate Decreased (NORMAL) L 12/11/18 10:25 Hypochromasia (manual) Slight 12/11/18 10:25 Poikilocytosis (manual Slight 12/11/18 10:25 Anisocytosis (manual) Slight 12/11/18 10:25 Microcytosis (manual) Slight 12/11/18 10:25 PT 19.7 SECONDS (9.7-12.2) H 12/09/18 10:46 INR 1.8 12/09/18 10:46 APTT 36 SECONDS (21-34) H 12/09/18 10:46 pO2 47 mm/Hg (30-55) 12/09/18 15:17 VBG pH 7.34 (7.32-7.43) 12/09/18 15:17 VBG pCO2 37 mmHg (40-60) L 12/09/18 15:17 VBG HCO3 20.4 mmol/L 12/09/18 15:17 VBG Total CO2 21.1 mmol/L (22-28) L 12/09/18 15:17 VBG O2 Sat (Calc) 82.1 % (40-65) H 12/09/18 15:17 VBG Base Excess -5.2 mmol/L (0.0-2.0) L 12/09/18 15:17 VBG Potassium 3.7 mmol/L (3.6-5.2) 12/09/18 15:17 Sodium 140.0 mmol/l (132-148) 12/09/18 15:17 Chloride 108.0 mmol/L (98-107) H 12/09/18 15:17 Glucose 88 mg/dl (75-110) 12/09/18 15:17 Lactate 4.7 mmol/L (0.7-2.1) H* 12/09/18 15:17 Crit Value Called To Dr curry 12/09/18 15:17 Crit Value Called By Dr curry 12/09/18 15:17 Crit Value Read Back Y 12/09/18 15:17 Blood Gas Notified Time 1524 12/09/18 15:17 Sodium 138 mmol/L (132-148) 12/13/18 07:17 Potassium 3.6 mmol/L (3.6-5.2) 12/13/18 07:17 Chloride 106 mmol/L (98-107) 12/13/18 07:17 Carbon Dioxide 25 mmol/L (22-30) 12/13/18 07:17 Anion Gap 11 (10-20) 12/13/18 07:17 BUN 9 mg/dL (9-20) 12/13/18 07:17 Creatinine 0.8 mg/dL (0.8-1.5) 12/13/18 07:17 Est GFR ( Amer) > 60 12/13/18 07:17 Est GFR (Non-Af Amer) > 60 12/13/18 07:17 POC Glucose (mg/dL) 75 mg/dL (65-110) 12/13/18 11:17 Random Glucose 54 mg/dL (75-110) L D 12/13/18 07:17 Calcium 7.2 mg/dl (8.6-10.4) L 12/13/18 07:17 Phosphorus 3.0 mg/dL (2.5-4.5) 12/13/18 07:17 Magnesium 1.6 mg/dL (1.6-2.3) 12/13/18 07:17 Total Bilirubin 4.5 mg/dL (0.2-1.3) H 12/13/18 07:17 AST 70 U/L (17-59) H 12/13/18 07:17 ALT 34 U/L (21-72) 12/13/18 07:17 Alkaline Phosphatase 113 U/L (38-126) 12/13/18 07:17 Total Protein 5.8 g/dL (6.3-8.3) L 12/13/18 07:17 Albumin 2.3 g/dL (3.5-5.0) L 12/13/18 07:17 Globulin 3.5 gm/dL (2.2-3.9) 12/13/18 07:17 Albumin/Globulin Ratio 0.7 (1.0-2.1) L 12/13/18 07:17 Lipase 146 U/L (23-300) 12/09/18 10:46 Venous Blood Potassium 3.7 mmol/L (3.6-5.2) 12/09/18 15:17 Urine Color Yellow (YELLOW) 12/09/18 11:40 Urine Clarity Hazy (Clear) 12/09/18 11:40 Urine pH 6.0 (5.0-8.0) 12/09/18 11:40 Ur Specific [place] 1.009 (1.003-1.030) 12/09/18 11:40 Urine Protein Negative mg/dL (NEGATIVE) 12/09/18 11:40 Urine Glucose (UA) Normal mg/dL (Normal) 12/09/18 11:40 Urine Ketones Negative mg/dL (NEGATIVE) 12/09/18 11:40 Urine Blood 1+ (NEGATIVE) H 12/09/18 11:40 Urine Nitrate Negative (NEGATIVE) 12/09/18 11:40 Urine Bilirubin Negative (NEGATIVE) 12/09/18 11:40 Urine Urobilinogen 2.0 mg/dL (0.2-1.0) 12/09/18 11:40 Ur Leukocyte Esterase Neg Jhonathan/uL (Negative) 12/09/18 11:40 Urine WBC (Auto) 2 /hpf (0-5) 12/09/18 11:40 Urine RBC (Auto) 8 /hpf (0-3) H 12/09/18 11:40 Ur Squamous Epith Cells 1 /hpf (0-5) 12/09/18 11:40 Vancomycin Trough 6.9 ug/mL (5.0-10.0) 12/12/18 06:56 Urine Opiates Screen Negative (NEGATIVE) 12/09/18 11:40 Urine Methadone Screen Positive (NEGATIVE) H 12/09/18 11:40 Ur Barbiturates Screen Negative (NEGATIVE) 12/09/18 11:40 Ur Phencyclidine Scrn Negative (NEGATIVE) 12/09/18 11:40 Ur Amphetamines Screen Negative (NEGATIVE) 12/09/18 11:40 U Benzodiazepines Scrn Negative (NEGATIVE) 12/09/18 11:40 U Oth Cocaine Metabols Negative (NEGATIVE) 12/09/18 11:40 U Cannabinoids Screen Negative (NEGATIVE) 12/09/18 11:40 Alcohol, Quantitative < 10 mg/dl (0-10) 12/09/18 10:46 Heparin-induced Plt Ab Positive (Negative) H 12/10/18 14:00 SHANA UFH Low Dose 0.1 0 % Release 12/10/18 14:00 SHANA UFH Low Dose 0.5 1 % Release 12/10/18 14:00 SHANA UFH High Dose 100 0 % Release 12/10/18 14:00 SHANA Unfract Heparin Negative (Negative) 12/10/18 14:00 Hep-Induced Plt Ab Cmmt 0.649 12/10/18 14:00 HIPA Patient OD 0.661 12/10/18 14:00 C. difficile Ag & Toxin Negative (NEGATIVE) 12/11/18 14:29 Hepatitis A IgM Ab Nonreactive (Nonreactive) 12/10/18 14:23 Hepatitis A Ab Total Reactive (Nonreactive) H 12/10/18 14:23 Hep Bs Antigen Negative (NEGATIVE) 12/10/18 14:23 Hep B Core IgM Ab Negative (NEGATIVE) 12/10/18 14:23 Hepatitis C Antibody Reactive (NEGATIVE) 12/10/18 14:23 HIV 1&2 Antibody Screen Negative (NEGATIVE) 12/10/18 14:23 Influenza Typ A,B (EIA) Negative for flu a/b (NEGATIVE) 12/10/18 10:31 - Hospital Course Hospital Course: PGY1 Discharge Summary and Hospital Course for Dr. 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 Patient describes the abdominal pain as diffuse, 10/10 in severity, and burning in quality. Patient denies radiating pain, but adds that he also experiences low back pain. Patient says he has been vomiting since last night (non-bilious/non-bloody), and denies blood in his stool/melena. Of note, Patient also complains of left lower extremity pain and attributes it to his venous ulcer. Patient states the wound has been improving significantly, and that he has been changing his dressings daily. Patient otherwise denies headache, chest pain, dysuria, hematuria, hematemesis, fatigue, dizziness, rash, and/or numbness/tingling. Patient was found to have lactate 4.9, fever, and bands --> CODE SEPSIS was called in ED. Patient subsequently resuscitated with aggressive fluids, started on zosyn. ID was consulted (Dr. Little). Patient subsequently admitted to telemetry. Please see complete chart for summary and more details. Hospital Course: CT abdomen/pelvis revealed: cirrhotic appearance of liver, 9x14mm nodule at right hemidiaphragm, arophic pancreas, marked splenomegaly extensive upper abdominal / esophageal varices, thick-walled appearance of distal esophagus, thickening of right colon; possible colitis vs malignant neoplasm, retroperitoneal mesenteric adenopathy; bulky left inguinal adenopathy 2.4m; fluid-filled right inguinal hernia; small fat containing umbilical hernia. Hepatobiliary Surgery was consulted on the case (Dr. Key): His current MELD is about 18, thus he would wait over a year for a liver transplant. Clinically he has no encephalopthy or ascites. His multiphase CT scan show no suspicious masses for HCC. Please see reports for details. Of note, Blood cultures were found to be positive for gram positive cocci. Patient was continued on zosyn and started on vanco. ID was consulted; recommended hepatitis panel, HIV panel. The former was positive. Viral load was obtained. Repeat blood cultures showed now growth. Patient was also found to be thrombocytopenic on CBC. Heparin products were avoided thoroughout hospitalization. Patient was found to have positive HIT antibodies. Patient also complained of bilateral lower extremity pain and left lower extremity chronic ulcer. Venous doppler were negative for DVT bilaterally, and revealed wall thickening noted of bilateral great saphenous veins, mild valvular incompetence. Wound was cleaned and dressed appropriately. Compression stockings were started as well. Vascular surgery was consulted; no vascular surgery intervention needed at this time. Please see chart for details. On day of discharge: Patient was hemodynamically stable and medically optimized for discharge to home. Consultants on the case agreed. Patient agreed. Patient had no acute complaints. Patient was provided with detailed discharge instructions (both verbally and in writing) the the level of the Patient's comprehension. Patient both understands and agrees to all instructions. Please see chart for details. Discharge Instructions: Follow-up with your PMD (Dr. Olga ball 3-5 days of being discharged from the hospital You were prescribed a new medication (antibiotic). Please complete the entire course of the following antibiotic: Cipro 500mg take 1 tab by mouth twice daily for 10 days If your symptoms return, go to your nearest emergency department immediately Discussed with Dr. Kwadwo Littlejohn PGY1 Discharge Exam - Additional Findings Additional findings: - Constitutional Appears: Non-toxic, No Acute Distress - Head Exam Head Exam: NORMAL INSPECTION - Eye Exam Eye Exam: EOMI, Normal appearance - ENT Exam ENT Exam: Mucous Membranes Dry - Respiratory Exam Respiratory Exam: Clear to Ausculation Bilateral, NORMAL BREATHING PATTERN - Cardiovascular Exam Cardiovascular Exam: REGULAR RHYTHM, +S1, +S2 - GI/Abdominal Exam GI & Abdominal Exam: Soft, Normal Bowel Sounds - Extremities Exam Extremities Exam: Normal Inspection. absent: Calf Tenderness, Pedal Edema Additional comments: noted eryhtema and swelling in left upper extremity in thigh region likely phlebitis pedal edema (+2 bilaterally ), pedal pulses present (chronic ulcer on left medial malleolus: 3-inch in diameter, no pus, clean, no foul smell, hemosiderinosis) - Back Exam Back Exam: NORMAL INSPECTION - Neurological Exam Neurological Exam: Alert, Awake, Oriented x3 - Psychiatric Exam Psychiatric exam: Normal Affect, Normal Mood - Skin Skin Exam: Dry, Intact, Normal Color Discharge Plan - Discharge Medications Prescriptions: Ciprofloxacin [Cipro] 500 mg PO BID #20 tab - Follow Up Plan Condition: SERIOUS Disposition: HOME/ ROUTINE Instructions: Ciprofloxacin (Systemic), Sepsis, Adult (DC), Acute Abdominal Pain (DC), Acute Abdominal Pain (GEN), Sepsis (DC), Sepsis (GEN), Rotavirus Infection (DC), Rotavirus Infection (GEN), Nutrition Tips for Relief of Diarrhea (DC), Nutrition Tips for Relief of Diarrhea (GEN) Additional Instructions: Follow-up with your PMD (Dr. Olga ball 3-5 days of being discharged from the hospital You were prescribed a new medication (antibiotic). Please complete the entire course of the following antibiotic: Cipro 500mg take 1 tab by mouth twice daily for 10 days If your symptoms return, go to your nearest emergency department immediately
== END 2018-12-13 15:23 | disposition home or self-care (01) | DRG 901 ==
LOC: C.ER 10:17 → C.5S 14:11 → OBSVTOIN 12-11 16:50
PROVIDERS: ADMIT Internal Medicine; ATTEND Internal Medicine
PROC: 05HY33Z Insertion of Infusion Device into Upper Vein, Percutaneous Approach (ICD-10-PCS; principal; 2018-12-11)
DX: A40.9 Streptococcal sepsis, unspecified (principal); K70.31 Alcoholic cirrhosis of liver with ascites; B15.9 Hepatitis A without hepatic coma; E87.6 Hypokalemia; D69.6 Thrombocytopenia, unspecified; L03.116 Cellulitis of left lower limb; L97.929 Non-pressure chronic ulcer of unspecified part of left lower leg with unspecified severity; R65.20 Severe sepsis without septic shock; K76.6 Portal hypertension; E83.42 Hypomagnesemia; I85.10 Secondary esophageal varices without bleeding; I87.2 Venous insufficiency (chronic) (peripheral)

== ENCOUNTER 2019-01-14 09:42 | Inpatient (IN) | payer MEDICAID ==
[~2019-01-14 09:42] MED LIST: Gadodiamide 287 mg/ml 20 ml IV ONE
--- NOTE | 2019-01-14 10:33 | C.PDOC ---
History Of Present Illness Patient is a 48 year old male who presents to the ED c/o moderate severe lower back pain over the past day. Patient reports that he woke up with sudden onset pain that is persistent. Pain is non-radiating. Patient is a poor historian and is not cooperating with answering questions. Denies numbness, weakness, bowel/bladder incontinence, fall/trauma. Time Seen by Provider: 01/14/19 09:56 Chief Complaint (Nursing): Back Pain History Per: Patient History/Exam Limitations: no limitations Onset/Duration Of Symptoms: Hrs Current Symptoms Are (Timing): Still Present Quality Of Discomfort: "Pain" Severity: Moderate Pain Scale Rating Of: 7 Previous Symptoms: denies: Neck Pain Exacerbating Factor(s): denies: Turning, Movement Recent travel outside of the [place]: No Past Medical History Reviewed: Historical Data, Nursing Documentation, Vital Signs Vital Signs: Last Vital Signs Temp 99.9 F H 01/14/19 09:55 Pulse 103 H 01/14/19 09:55 Resp 19 01/14/19 09:55 BP 112/65 01/14/19 09:55 Pulse Ox 95 01/14/19 09:55 Primary Care Provider: FAMILY PROVIDER,NO - Medical History PMH: No Chronic Diseases Denies: Deep Vein Thrombosis, Chronic Kidney Disease Surgical History: No Surg Hx Denies: Pacemaker - [facility] Procedures INSERTION OF INFUSION DEVICE INTO UPPER VEIN, PERC APPROACH (12/11/18) Family History: States: Unknown Family Hx - Social History Hx Alcohol Use: No Hx Substance Use: Yes - Immunization History Hx Tetanus Toxoid Vaccination: No Hx Influenza Vaccination: No Hx Pneumococcal Vaccination: No Review Of Systems Except As Marked, All Systems Reviewed And Found Negative. Constitutional: Negative for: Fever Cardiovascular: Negative for: Chest Pain Respiratory: Negative for: Shortness of Breath Musculoskeletal: Positive for: Back Pain (severe) Physical Exam - Physical Exam Appears: Non-toxic, Unkempt, Other (appears to be under influence of drugs, but answering questions.) Skin: Warm, Dry, No Rash, Other ((+) 3cm wound to the medial aspect of the left ankle with mild surrounding erythema. ) Head: Atraumatic, Normacephalic Eye(s): bilateral: Normal Inspection, PERRL, EOMI Oral Mucosa: Moist Throat: No Erythema, No Exudate Neck: Normal ROM, Supple Chest: Symmetrical, No Deformity Cardiovascular: Rhythm Regular, No Friction Rub, No Murmur Respiratory: Normal Breath Sounds, No Rales, No Rhonchi, No Wheezing Gastrointestinal/Abdominal: Soft, No Tenderness, No Distention, No Guarding Back: Normal Inspection, No CVA Tenderness, No Vertebral Tenderness, No Paraspinal Tenderness Extremity: Normal ROM, No Tenderness, Capillary Refill (< 2 sec) Pulses: Left Dorsalis Pedis: Normal, Right Dorsalis Pedis: Normal Neurological/Psych: Oriented x3, Normal Motor, Normal Sensation, Other (pressured speech) Gait: Steady ED Course And Treatment - Laboratory Results Result Diagrams: 01/14/19 10:51 01/14/19 10:51 ECG: Interpreted By Me, Viewed By Me ECG Rhythm: Sinus Tachycardia Interpretation Of ECG: Normal ST/T waves Rate From EC O2 Sat by Pulse Oximetry: 95 (on RA) Pulse Ox Interpretation: Normal - CT Scan/US CAT A&P Other Rad Studies (CT/US): Read By Radiologist, Radiology Report Reviewed CT/US Interpretation: Date of service: 01/14/2019. PROCEDURE: CT Abdomen and Pelvis without intravenous contrast. HISTORY: Low back pain. COMPARISON: 12/09/2018. TECHNIQUE: CT scan of the abdomen and pelvis was performed without administration of intravenous contrast. Oral contrast was not administered. Coronal and sagittal reformatted images were obtained. Radiation dose: Total exam DLP = 1195.59 mGy-cm. This CT exam was performed using one or more of the following dose reduction techniques: Automated exposure control, adjustment of the mA and/or kV according to patient size, and/or use of iterative reconstruction technique. FINDINGS: LOWER THORAX: The visualized lungs are clear. There is a stable 10 mm nodule in the right anterior lung base. LIVER: Again seen is a small cirrhotic liver. No ductal dilatation. GALLBLADDER AND BILE DUCTS: Well distended. No calcified gallstones. No common bile duct dilatation. PANCREAS: Normal in size. No gross lesion or ductal dilatation. SPLEEN: Normal in size. ADRENALS: Normal in size. No discrete nodule. KIDNEYS AND URETERS: Both kidneys are normal in size. No hydronephrosis or nephrolithiasis. VASCULATURE: Normal in caliber. No aortic aneurysm. No aortic atherosclerotic calcification or mural plaque present. There are multiple perisplenic, short gastric and esophageal varices. BOWEL: Evaluation of the bowel is limited in the absence of oral contrast. The proximal small bowel loops are normal in caliber. There is moderate amount of stool in the colon and fecalization of small bowel contents in the terminal ileum. There are fluid- filled mildly dilated mid small bowel loops. No bowel obstruction. APPENDIX: Normal appendix. PERITONEUM: No free fluid. No free air. There is significant mesenteric edema. LYMPH NODES: Again seen is bilateral inguinal lymphadenopathy, worse on the left. BLADDER: Partially decompressed. REPRODUCTIVE: The prostate gland is normal in size. BONES: No acute fracture. Within normal limits for the patient's age. OTHER FINDINGS: There are bilateral inguinal scrotal hernia with fluid in the right hemiscrotum. IMPRESSION: 1. Fluid-filled mildly dilated mid small bowel loops, nonspecific and could represent nonspecific enteritis. No evidence for bowel obstruction. 2. Cirrhosis of liver with portal hypertension and moderate splenomegaly. 3. Mild diffuse mesenteric edema. 4. Stable inguinal lymphadenopathy, worse on the left. Medical Decision Making Medical Decision Making: Plan: CAT A&P Labs UA Pepcid 20mg IVP Toradol 30mg IVP Zofran 4mg IVP IV Fluids The patient was in moderate pain and writhing around. CT Abd/pelvis to rule out kidney stone. CT Abd/pelvis mostly unremarkable. Pt now with bandemia and leukocytosis and fever. MRI of back ordered to rule out epidural abscess. NS IVF ordered. Blood and urine cultures ordered. The case was discussed with Dr. Burkett (internal medicine oncall) who agrees to admit the patient to his service. Disposition - Disposition Disposition: HOSPITALIZED Disposition Time: 12:00 Condition: GUARDED - POA Present On Arrival: None - Clinical Impression Clinical Impression: Ulcer of ankle, Bandemia, Leukocytosis - PA / ASSISTANT HVAC MECHANIC / Resident Statement MD/DO has reviewed & agrees with the documentation as recorded. - Scribe Statement The provider has reviewed the documentation as recorded by the Ayda Tidwell All medical record entries made by the [place] were at my direction and personally dictated by me. I have reviewed the chart and agree that the record accurately reflects my personal performance of the history, physical exam, medical decision making, and the department course for this patient. I have also personally directed, reviewed, and agree with the discharge instructions and disposition.
[2019-01-14] MEDS ORDERED: Sodium Chloride 0.9% 1,000 ML IV ONE (10:34)
[2019-01-14] MEDS ORDERED: Sodium Chloride 0.9% 1,000 ML ONE (10:48)
[2019-01-14 11:04] LABS: BASO % 0.1 % (0.0-2.0); EOS % 0.3 % (0.0-4.0); HEMOGLOBIN 12.1 g/dL (12.0-18.0); LYMPH # 0.4 K/uL (1.0-4.3); LYMPH % 3.3 % (20.0-40.0); MEAN CELL VOLUME 84.1 fL (80.0-94.0); MEAN CORPUSCULAR HEMOGLOBIN 28.7 pg (27.0-31.0); MEAN CORPUSCULAR HGB CONC 34.2 g/dL (33.0-37.0); MONO # 0.3 K/uL (0.0-0.8); NEUT # 12.5 K/uL (1.8-7.0); NEUT % 94.3 % (50.0-75.0); NRBC % 0.1 % (0.0-2.0); PLATELET COUNT 60 K/uL (130-400); RED CELL DISTRIBUTION WIDTH 15.8 % (11.5-14.5)
[2019-01-14 11:08] LABS: WHITE BLOOD COUNT 13.3 K/uL (4.8-10.8)
[2019-01-14 11:19] LABS: ALB/GLOB RATIO 0.6 (1.0-2.1); ALBUMIN 2.8 g/dL (3.5-5.0); ALT/SGPT 16 U/L (21-72); AST/SGOT 45 U/L (17-59); BLOOD UREA NITROGEN 8 mg/dL (9-20); CALCIUM 7.8 mg/dl (8.6-10.4); GFR NON-AFRICAN AMERICAN > 60; LIPASE 158 U/L (23-300)
--- NOTE | 2019-01-14 11:52 | CT ---
Date of service: 01/14/2019 PROCEDURE: CT Abdomen and Pelvis without intravenous contrast HISTORY: Low back pain COMPARISON: 12/09/2018. TECHNIQUE: CT scan of the abdomen and pelvis was performed without administration of intravenous contrast. Oral contrast was not administered. Coronal and sagittal reformatted images were obtained. Radiation dose: Total exam DLP = 1195.59 mGy-cm. This CT exam was performed using one or more of the following dose reduction techniques: Automated exposure control, adjustment of the mA and/or kV according to patient size, and/or use of iterative reconstruction technique. FINDINGS: LOWER THORAX: The visualized lungs are clear. There is a stable 10 mm nodule in the right anterior lung base. LIVER: Again seen is a small cirrhotic liver. No ductal dilatation. GALLBLADDER AND BILE DUCTS: Well distended. No calcified gallstones. No common bile duct dilatation. PANCREAS: Normal in size. No gross lesion or ductal dilatation. SPLEEN: Normal in size. ADRENALS: Normal in size. No discrete nodule. KIDNEYS AND URETERS: Both kidneys are normal in size. No hydronephrosis or nephrolithiasis. VASCULATURE: Normal in caliber. No aortic aneurysm. No aortic atherosclerotic calcification or mural plaque present. There are multiple perisplenic, short gastric and esophageal varices. BOWEL: Evaluation of the bowel is limited in the absence of oral contrast. The proximal small bowel loops are normal in caliber. There is moderate amount of stool in the colon and fecalization of small bowel contents in the terminal ileum. There are fluid-filled mildly dilated mid small bowel loops. No bowel obstruction. APPENDIX: Normal appendix. PERITONEUM: No free fluid. No free air. There is significant mesenteric edema. LYMPH NODES: Again seen is bilateral inguinal lymphadenopathy, worse on the left. BLADDER: Partially decompressed. REPRODUCTIVE: The prostate gland is normal in size. BONES: No acute fracture. Within normal limits for the patient's age. OTHER FINDINGS: There are bilateral inguinal scrotal hernia with fluid in the right hemiscrotum. IMPRESSION: 1. Fluid-filled mildly dilated mid small bowel loops, nonspecific and could represent nonspecific enteritis. No evidence for bowel obstruction. 2. Cirrhosis of liver with portal hypertension and moderate splenomegaly. 3. Mild diffuse mesenteric edema. 4. Stable inguinal lymphadenopathy, worse on the left.
[2019-01-14 11:55] LABS: BANDS 25 % (0-2); EOSINOPHIL 1 % (0-4); LYMPHOCYTE 2 % (20-40); MONOCYTE 2 % (0-10); NEUTROPHIL 70 % (50-75); TOTAL CELLS COUNTED 100
[2019-01-14 11:58] LABS: ANISOCYTOSIS SLIGHT; HYPOCHROMIC SLIGHT; PLATELET ESTIMATE DECREASED (NORMAL)
[2019-01-14 11:59] LABS: POLYCHROMIC SLIGHT
[2019-01-14 12:12] LABS: SQUAMOUS EPITHIAL 2 /hpf (0-5); URINE BACTERIA RARE (<OCC); URINE BILIRUBIN NEGATIVE (NEGATIVE); URINE BLOOD 3+ (NEGATIVE); URINE CLARITY Hazy (Clear); URINE COLOR Amber (YELLOW); URINE GLUCOSE (UA) NORMAL (Normal); URINE LEUKOCYTE ESTERASE NEG Leu/uL (Negative); URINE PROTEIN 1+ mg/dL (NEGATIVE)
[2019-01-14] MEDS ORDERED: Vancomycin 1 GM 1 GM/250 ML BAG IV STA (12:24)
[2019-01-14] MEDS ORDERED: Gentamicin 80 mg/2mL Inj. IVPB STA (12:24)
--- NOTE | 2019-01-14 12:50 | RAD ---
Date of service: 01/14/2019 HISTORY: fever COMPARISON: 12/09/2018 FINDINGS: LUNGS: Mild diffuse increased interstitial lung markings with patchy increased markings at the lung bases. Right hilar prominence. PLEURA: No significant pleural effusion identified, no pneumothorax apparent. CARDIOVASCULAR: No aortic atherosclerotic calcification present. Top normal heart size. OSSEOUS STRUCTURES: Suggestion of a deformity of the distal left clavicle. Clinical correlation. VISUALIZED UPPER ABDOMEN: Normal. OTHER FINDINGS: None. IMPRESSION: Mild diffuse increased interstitial lung markings with patchy increased markings at the lung bases. Right hilar prominence. Clinical correlation.
[2019-01-14] MEDS ORDERED: GENTAMICIN IVPB ONE ×2 (13:00)
[2019-01-14] MEDS ORDERED: SODIUM CHLORIDE 0.9% IVPB ONE ×2 (13:00)
[2019-01-14] MEDS ORDERED: Vancomycin 1 GM 1 GM/250 ML BAG IVPB ONE (13:07)
--- NOTE | 2019-01-14 15:42 | CP.PCM.HP ---
History of Present Illness - History of Present Illness History of Present Illness: Medicine History and Physical for Dr. Burkett 48 y o male with PMhx Liver cirrhosis, Hep C (dx in 2004), former EtOH abuse and IVDA (last use 10 y ago as per pt), Psoriasis who presents to the ED c/o worsening low back pain that started this morning. Pt states the pain woke him up from sleep this am and states he was unable to ambulate or stand up straight, thus he came to the ED. Not c/o low back pain on exam currently, states the me dication he was given in the ED helped with his back pain. Denies sciatic-like symptoms, bowel/bladder incontinence, numbness/tingling down lower extremities b/l. Reports subjective fevers and chills at home that have been present since this am. Denies neck pain or recent IVDA or injection. Denies headache, dizziness, chest pain, sob, cough, n/v/d/c, abd pain, urinary complaints, or other symptoms. Pt states he was recently admitted to [facility] 1 month ago for abd pain and was treated with IV antibiotics for bacterial infection in the blood. Reports chronic hx of Hep C and liver cirrhosis, states his last paracentesis was 2 y ago; denies bloating, enlargement of his abdomen, or disco mfort similar to his ascites episodes in the past. Reports he follows with pain management doctor in the [place] (Dr. Arnett). Of note, pt states he lives in the [place] but was visiting his mother who lives in [place] for the holiday weekend. PMhx: as noted above PSurgHx: denies Allergies: NKDA Home meds: none Fam hx: Mom alive with arthritis, lung and heart disease; Dad's medical hx unknown Soc hx: Former IVDA of heroin and cocaine, quit 10 y ago; former EtOH abuser quit 10 y ago; currently smokes 2 cigarettes/day on and off for the past several years PMD: Dr. Parnell ([place], [place]) Pain management: Dr. Arnett, [facility]: [facility], [address] [place] [address] and [facility] in [place], [place] Present on Admission - Present on Admission Any Indicators Present on Admission: No Review of Systems - Constitutional Constitutional: Chills, Fever. absent: Fatigue, Headache, Night Sweats - EENT Eyes: absent: Change in Vision - Cardiovascular Cardiovascular: absent: Chest Pain, Dyspnea on Exertion, Leg Edema, Palpitations - Respiratory Respiratory: absent: Cough, Dyspnea, Wheezing, Chest Congestion, Excessive Mucous Production - Gastrointestinal Gastrointestinal: absent: Abdominal Pain, Constipation, Diarrhea, Fecal Incontinence, Nausea, Vomiting - Genitourinary Genitourinary: absent: Change in Urinary Stream, Difficulty Urinating, Dysuria, Urinary Incontinence - Integumentary Integumentary: Skin Ulcer. absent: Rash - Neurological Neurological: absent: Dizziness, Numbness, Syncope, Tingling, Tremor, Weakness Past Patient History - Infectious Disease Hx of Infectious Diseases: None - Past Medical History & Family History Past Medical History?: Yes - Past Social History Smoking Status: Light Smoker < 10 Cigarettes Daily - CARDIAC Hx Pacemaker: No - PULMONARY Hx Respiratory Disorders: No - NEUROLOGICAL Hx Neurological Disorder: No - HEENT Hx HEENT Problems: No - RENAL Hx Chronic Kidney Disease: No - ENDOCRINE/METABOLIC Hx Endocrine Disorders: No - HEMATOLOGICAL/ONCOLOGICAL Hx Blood Disorders: No Other/Comment: unknown "liver problems" - INTEGUMENTARY Hx Psoriasis: Yes - MUSCULOSKELETAL/RHEUMATOLOGICAL Hx Falls: No - GASTROINTESTINAL Hx Gastrointestinal Disorders: Yes Hx Liver Failure: Yes (liver cirrhosis) - GENITOURINARY/GYNECOLOGICAL Hx Genitourinary Disorders: No - PSYCHIATRIC Hx Substance Use: Yes - SURGICAL HISTORY Hx Surgeries: No - ANESTHESIA Hx Anesthesia: No Meds Allergies/Adverse Reactions: Allergies Allergy/AdvReac Type Severity Reaction Status Date / Time No Known Allergies Allergy Verified 01/14/19 09:44 Physical Exam - Constitutional Appears: Non-toxic, No Acute Distress - Head Exam Head Exam: ATRAUMATIC, NORMOCEPHALIC - Eye Exam Eye Exam: EOMI, Normal appearance, PERRL - ENT Exam ENT Exam: Mucous Membranes Moist, Normal Oropharynx - Respiratory Exam Respiratory Exam: Clear to Auscultation Bilateral, NORMAL BREATHING PATTERN. absent: Rales, Rhonchi, Wheezes - Cardiovascular Exam Cardiovascular Exam: Tachycardia, +S1, +S2. absent: Gallop, Rubs, Systolic Murmur - GI/Abdominal Exam GI & Abdominal Exam: Normal Bowel Sounds, Soft. absent: Distended, Guarding, Organomegaly, Rebound, Tenderness - Extremities Exam Extremities exam: Positive for: full ROM, normal capillary refill, tenderness (Stage 2 ulcer 8 cm in size appreciated on exam distal to L medial malleolus, c/d/i, no abnormal drainage appreciated from site, tender to palpation on exam), pedal pulses present. Negative for: pedal edema - Back Exam Back exam: FULL ROM, NORMAL INSPECTION. absent: paraspinal tenderness - Neurological Exam Neurological exam: Alert, CN II-XII Intact, Oriented x3, Reflexes Normal - Skin Skin Exam: Dry, Intact, Warm Additional comments: Psoriatic skin plaques appreciated diffusely on exam Results - Vital Signs Recent Vital Signs: Last Vital Signs Temp 100 F H 01/14/19 15:30 Pulse 94 H 01/14/19 15:30 Resp 20 01/14/19 15:30 BP 109/59 L 01/14/19 15:30 Pulse Ox 96 01/14/19 15:30 - Labs Result Diagrams: 01/14/19 10:51 01/14/19 10:51 Labs: Laboratory Results - last 24 hr 01/14/19 01/14/19 01/14/19 10:51 10:51 11:55 WBC 13.3 H D RBC 4.20 L Hgb 12.1 Hct 35.3 MCV 84.1 MCH 28.7 MCHC 34.2 RDW 15.8 H Plt Count 60 L MPV 8.0 Neut % (Auto) 94.3 H Lymph % (Auto) 3.3 L [place] % (Auto) 2.0 Eos % (Auto) 0.3 Baso % (Auto) 0.1 Neut # (Auto) 12.5 H Lymph # (Auto) 0.4 L [place] # (Auto) 0.3 Eos # (Auto) 0.0 Baso # (Auto) 0.0 Neutrophils % (Manual) 70 Band Neutrophils % 25 H* Lymphocytes % (Manual) 2 L Monocytes % (Manual) 2 Eosinophils % (Manual) 1 Platelet Estimate Decreased L Polychromasia Slight Hypochromasia (manual) Slight Anisocytosis (manual) Slight Sodium 138 Potassium 3.4 L Chloride 107 Carbon Dioxide 23 Anion Gap 11 BUN 8 L Creatinine 0.8 Est GFR ( Amer) > 60 Est GFR (Non-Af Amer) > 60 Random Glucose 72 L D Lactic Acid Calcium 7.8 L Total Bilirubin 2.2 H AST 45 ALT 16 L D Alkaline Phosphatase 199 H D Total Protein 7.2 Albumin 2.8 L D Globulin 4.4 H Albumin/Globulin Ratio 0.6 L Lipase 158 Urine Color Lory Urine Clarity Hazy Urine pH 5.0 Ur Specific [place] 1.014 Urine Protein 1+ H Urine Glucose (UA) Normal Urine Ketones Trace Urine Blood 3+ H Urine Nitrate Negative Urine Bilirubin Negative Urine Urobilinogen 2.0 Ur Leukocyte Esterase Neg Urine WBC (Auto) 5 Urine RBC (Auto) 38 H Ur Squamous Epith Cells 2 Urine Bacteria Rare 01/14/19 12:48 WBC RBC Hgb Hct MCV MCH MCHC RDW Plt Count MPV Neut % (Auto) Lymph % (Auto) Ferry % (Auto) Eos % (Auto) Baso % (Auto) Neut # (Auto) Lymph # (Auto) Ferry # (Auto) Eos # (Auto) Baso # (Auto) Neutrophils % (Manual) Band Neutrophils % Lymphocytes % (Manual) Monocytes % (Manual) Eosinophils % (Manual) Platelet Estimate Polychromasia Hypochromasia (manual) Anisocytosis (manual) Sodium Potassium Chloride Carbon Dioxide Anion Gap BUN Creatinine Est GFR ( Amer) Est GFR (Non-Af Amer) Random Glucose Lactic Acid 3.7 H Calcium Total Bilirubin AST ALT Alkaline Phosphatase Total Protein Albumin Globulin Albumin/Globulin Ratio Lipase Urine Color Urine Clarity Urine pH Ur Specific [place] Urine Protein Urine Glucose (UA) Urine Ketones Urine Blood Urine Nitrate Urine Bilirubin Urine Urobilinogen Ur Leukocyte Esterase Urine WBC (Auto) Urine RBC (Auto) Ur Squamous Epith Cells Urine Bacteria Assessment & Plan - Assessment and Plan (Free Text) Assessment: 48 y o male with PMhx Liver cirrhosis, Hep C (dx in 2004), former EtOH abuse and IVDA (last use 10 y ago as per pt), Psoriasis who presents to the ED c/o worsening low back pain that started this morning. MRI lumbar spine ordered to r/o epidural abscess in light of hx of IVDA. Tachycardic and leukocytosis on admission, meets SIRS criteria. Vanco/Gentamicin started. CXR on admission demonstrates mild diffuse increased interstitial lung markings with patchy increased markings at lung bases, R hilar prominence. Pending blood, urine, wound cxs. Plan: Low back pain -Resolved on exam in ED, s/p Toradol administration in ED -Pt not c/o bowel/bladder incontinence at this time -F/u MRI lumbar spine -Vanco/Gentamicin for empiric coverage, r/o epidural abscess -Will cont to monitor SIRS -Tachycardic and leukocytosis as noted above -Vanco/Gent -F/u blood, urine, wound cxs -CXR findings as noted above -Tylenol prn for fevers -IVF at 100 cc/hr Thrombocytopenia -Likely chronic, pt demonstrated this on labs in prior admission in November 2018 -Cont to trend -Does not need platelet transfusion at this time -May be 2/2 bone marrow suppression Hx L ankle ulcer, stage 2 -Wound care prn -Pending wound culture -C/d/i on exam, will cont to monitor Hx Cirrhosis, Hep C -Has been seen in past by liver specialist on prior admission to [facility] in November 2017, was recommended liver transplant in 1 y and to establish care with liver specialist in community -Prior w/u in November 2018 demonstrates reactive Hep C, neg viral load -Can f/u with PCP once d/c'd, does not need medical treatment at this time -Abd/pelvis CT: enteritis, fluid-filled bowel loops, cirrhosis of liver w/ por sherrie HTN and moderate splenomegaly, mild diffuse mesenteric edema, stable inguinal lymphadenopathy -Pt not c/o abd pain currently, will cont to monitor Hx IVDA, EtOH abuse -Quit 10 y ago as per pt -UDS pending -EtOH level pending Hx Psoriasis -Not on any current medical therapy -Will cont to monitor PPX: -SCD; will hold pharmacologic DVT ppx 2/2 thrombocytopenia, likely chronic, had this on prior admission -Protonix -Verify home meds with pharmacy; pt was telling nursing staff that he is on Methadone Further recommendations as per Dr. Burkett, attending physician. Josh Isbell, PGY-1, Blood And Plasma Laboratory Assistant Pager #[phone]
--- NOTE | 2019-01-14 15:54 | MRI ---
Date of service: 01/14/2019 PROCEDURE: MR LUMBAR SPINE WITH AND WITHOUT CONTRAST HISTORY: severe low back pain, r/o epidural abscess COMPARISON: None available. TECHNIQUE: Multiecho multiplanar sequences were performed through the lumbar spine with and without the use of intravenous contrast. Omniscan was injected intravenously. FINDINGS: There is normal alignment of the lumbar vertebral bodies. There is normal lumbar lordosis. There is no acute fracture, spondylolysis or spondylolisthesis. Bone marrow signal is within normal limits. The conus medullaris terminates at a normal level and the nerve roots of cauda equina are normal. There is no abnormal intramedullary, extramedullary or leptomeningeal enhancement. The paraspinous soft tissues are normal. Imaged portion of the retroperitoneum is within normal limits. T12-L1: No disc herniation, spinal canal stenosis or neural foraminal narrowing. L1-2: Mild posterior disc bulge without spinal canal stenosis or neural foraminal narrowing. L2-3: No disc herniation, spinal canal stenosis or neural foraminal narrowing. L3-4: Diffuse posterior disc bulge indents the ventral thecal sac without spinal canal stenosis. Mild bilateral facet arthropathy contributes to mild bilateral neural foraminal narrowing. L4-5: Diffuse posterior disc bulge indents the ventral sac thick or sac without central spinal canal stenosis. Moderate bilateral facet arthropathy contribute to mild neural foraminal narrowing. L5-S1: Broad-based central disc protrusion indents the ventral thecal sac without central spinal canal stenosis. Mild bilateral facet arthropathy contribute to mild neural foraminal narrowing. OTHER FINDINGS: None. IMPRESSION: 1. Mild multilevel degenerative disc disease, worse at L5-S1 with a broad-based central disc protrusion without spinal canal stenosis. Mild bilateral facet arthropathy contributes to mild neural foraminal narrowing. 2. No evidence of acute fracture or spondylolysis. 3. No evidence for discitis osteomyelitis, abnormal cord enhancement, intrinsic cord signal abnormality or epidural abscess.
[2019-01-14] MEDS: Sodium Chloride 0.9% 1,000 ML IV SCH (16:40)
[2019-01-14] MEDS ORDERED: Potassium Chloride 20 mEq/15 ml LIQ UD PO ONE (16:48)
[2019-01-14 19:42] LABS: BARBITURATES, UR NEGATIVE (NEGATIVE); BENZODIAZEPINES, UR NEGATIVE (NEGATIVE); OPIATES, UR NEGATIVE (NEGATIVE); PHENCYCLIDINE, UR NEGATIVE (NEGATIVE)
[2019-01-15] MEDS: Vancomycin 1 gm/NS 200 ml 1 GM/200 ML BAG IVPB SCH ×2 (00:07→11:54)
[2019-01-15] MEDS: Sodium Chloride 0.9% 1,000 ML IV SCH ×4 (01:45→21:53)
--- NOTE | 2019-01-15 08:51 | CP.PCM.PN ---
Subjective - Date & Time of Evaluation Date of Evaluation: 01/15/19 Time of Evaluation: 08:50 - Subjective Subjective: Resident Progress Note for Dr. Burkett Patient examined at bedside. No acute events overnight. Patient reports im provement in back pain. Denies fevers, chills, chest pain, shortness of breath, abdominal pain, diarrhea, dysuria. Objective - Vital Signs/Intake and Output Vital Signs (last 24 hours): Temp Pulse Resp BP Pulse Ox 97.7 F 87 20 112/67 96 01/15/19 07:54 01/15/19 07:54 01/15/19 07:54 01/15/19 07:54 01/15/19 07:54 Intake and Output: 01/15/19 01/15/19 06:59 18:59 Intake Total 2000 Output Total 700 Balance 1300 - Medications Medications: Current Medications Acetaminophen (Tylenol 325mg Tab) 650 mg PO Q6 PRN PRN Reason: Fever >100.4 F Last Admin: 01/14/19 18:35 Dose: 650 mg Gentamicin Sulfate 670 mg/ (Sodium Chloride) 116.75 mls @ 100 mls/hr IVPB Q24H NELIA; Protocol Vancomycin/Sodium Chloride (Vancomycin 1 Gm/Ns 200 Ml) 1 gm in 200 mls @ 133 mls/hr IVPB Q12H NELIA; Protocol Stop: 01/20/19 00:01 Last Admin: 01/15/19 00:07 Dose: 133 mls/hr Sodium Chloride (Sodium Chloride 0.9%) 1,000 mls @ 100 mls/hr IV .Q10H NELIA Last Admin: 01/15/19 06:05 Dose: 100 mls/hr Nicotine (Nicoderm Cq) 1 patch TD DAILY NELIA Pantoprazole Sodium (Protonix Inj) 40 mg IVP DAILY NELIA Last Admin: 01/14/19 16:40 Dose: 40 mg - Labs Labs: 01/14/19 10:51 01/14/19 10:51 - Constitutional Appears: Non-toxic, No Acute Distress - Head Exam Head Exam: ATRAUMATIC, NORMOCEPHALIC - Eye Exam Eye Exam: EOMI, Normal appearance, PERRL - ENT Exam ENT Exam: Mucous Membranes Moist - Respiratory Exam Respiratory Exam: Clear to Auscultation Bilateral, NORMAL BREATHING PATTERN. absent: Rales, Rhonchi, Wheezes - Cardiovascular Exam Cardiovascular Exam: RRR, +S1, +S2. absent: Gallop, Rubs, Systolic Murmur - GI/Abdominal Exam GI & Abdominal Exam: Normal Bowel Sounds, Soft. absent: Distended, Guarding, Organomegaly, Rebound, Tenderness - Extremities Exam Extremities exam: Positive for: full ROM, normal capillary refill, tenderness (Stage 2 ulcer 8 cm in diameter distal to L medial malleolus, c/d/i, no purulent drainage, tender to palpation on exam), pedal pulses present. Negative for: pedal edema - Back Exam Back exam: FULL ROM, NORMAL INSPECTION. absent: paraspinal tenderness - Neurological Exam Neurological exam: Alert, CN II-XII Intact, Oriented x3, Reflexes Normal - Skin Skin Exam: Dry, Intact, Warm Additional comments: diffuse psoriasis Assessment and Plan - Assessment and Plan (Free Text) Assessment: 48 year old male with past medical history of liver cirrhosis, Hep C (dx in 2004), former EtOH abuse and IVDA (last use 10 y ago as per pt), psoriasis who presents to the ED c/o worsening low back pain that started this morning. Tachycardic and leukocytosis on admission, meets SIRS criteria. Plan: Low back pain, acute - mild multilevel degenerative disc disease, mild neural foraminal narrowing, no acute fracture or spondylolysis, no epidural abscess - Tylenol PRN SIRS, resolved -Tachycardic and leukocytosis on admission -Vanco/Gent discontinued -blood cultures negative x2 -urine culture negative -CXR shows patchy markings at lung bases -IVF at 100 cc/hr -procal elevated Thrombocytopenia, chronic -Does not need platelet transfusion at this time -May be 2/2 bone marrow suppression L ankle ulcer, stage 2, chronic -Wound care prn -Cipro 200 mg IV Q12H -wound culture prelim gram positive cocci Hx Cirrhosis, Hep C -Has been seen in past by liver specialist on prior admission to [facility] in November 2017, was recommended liver transplant in 1 y and to establish care with liver specialist in community -Prior w/u in November 2018 demonstrates reactive Hep C, neg viral load -Can f/u with PCP once d/c'd, does not need medical treatment at this time -Abd/pelvis CT: enteritis, fluid-filled bowel loops, cirrhosis of liver w/ portal HTN and moderate splenomegaly, mild diffuse mesenteric edema, stable inguinal lymphadenopathy Hx IVDA, EtOH abuse -Quit 10 y ago as per pt -UDS positive for methadone -alcohol negative Hx Psoriasis -Not on any current medical therapy -Will cont to monitor PPX -SCD; will hold pharmacologic DVT ppx 2/2 thrombocytopenia -Protonix Dispo: pending cultures Case reviewed with Dr. Kwadwo Dolan PGY-1
[2019-01-15 08:55] LABS: BASO % 0.2 % (0.0-2.0); EOS % 0.1 % (0.0-4.0); HEMOGLOBIN 10.6 g/dL (12.0-18.0); LYMPH # 0.5 K/uL (1.0-4.3); LYMPH % 4.9 % (20.0-40.0); MEAN CORPUSCULAR HEMOGLOBIN 28.8 pg (27.0-31.0); MEAN CORPUSCULAR HGB CONC 33.3 g/dL (33.0-37.0); MEAN PLATELET VOLUME 8.9 fL (7.2-11.7); MONO # 0.4 K/uL (0.0-0.8); MONO % 3.3 % (0.0-10.0); NEUT # 9.7 K/uL (1.8-7.0); NEUT % 91.5 % (50.0-75.0); RED CELL DISTRIBUTION WIDTH 16.1 % (11.5-14.5); WHITE BLOOD COUNT 10.6 K/uL (4.8-10.8)
[2019-01-15 09:09] LABS: ALB/GLOB RATIO 0.5 (1.0-2.1); ALBUMIN 2.1 g/dL (3.5-5.0); ALT/SGPT 22 U/L (21-72); AST/SGOT 49 U/L (17-59); BLOOD UREA NITROGEN 20 mg/dL (9-20); CALCIUM 7.4 mg/dl (8.6-10.4); GFR NON-AFRICAN AMERICAN > 60; HDL CHOLESTEROL 26 mg/dL (30-70)
[2019-01-15 09:12] LABS: MEAN CELL VOLUME 86.6 fL (80.0-94.0)
[2019-01-15 09:13] LABS: PLATELET COUNT 37 K/uL (130-400)
[2019-01-15 09:24] LABS: LDL CHOLESTEROL < 30 mg/dL (0-129)
[2019-01-15 11:43] LABS: ANISOCYTOSIS SLIGHT; BANDS 2 % (0-2); LYMPHOCYTE 3 % (20-40); MONOCYTE 2 % (0-10); NEUTROPHIL 93 % (50-75); PLATELET ESTIMATE DECREASED (NORMAL); TOTAL CELLS COUNTED 100
[2019-01-15 11:44] LABS: HYPOCHROMIC SLIGHT; POLYCHROMIC SLIGHT
[2019-01-15] MEDS ORDERED: SODIUM CHLORIDE 0.9% IVPB SCH (12:30)
[2019-01-15] MEDS ORDERED: GENTAMICIN IVPB SCH (12:30)
[2019-01-15] MEDS: Ciprofloxacin 200mg/100ml D5W 100 ML IVPB SCH ×2 (17:00→18:51)
[2019-01-15] MEDS ORDERED: Potassium & Sodium Phosphate PO ONE (17:05)
[2019-01-15] MEDS ORDERED: Magnesium Sulfate 1 gm in D5W 1 GM/100 ML BAG IVPB ONE (17:05)
[2019-01-16 00:13] VITALS: RESP 20
[2019-01-16] MEDS: Ciprofloxacin 200mg/100ml D5W 100 ML IVPB SCH (04:25)
--- NOTE | 2019-01-16 07:13 | CP.PCM.PN ---
Subjective - Date & Time of Evaluation Date of Evaluation: 01/16/19 Time of Evaluation: 07:12 - Subjective Subjective: Resident Progress Note for Dr. Burkett Objective - Vital Signs/Intake and Output Vital Signs (last 24 hours): Temp Pulse Resp BP Pulse Ox 97.9 F 77 20 111/70 96 01/16/19 00:08 01/16/19 00:08 01/16/19 00:08 01/16/19 00:08 01/16/19 00:08 Intake and Output: 01/16/19 01/16/19 06:59 18:59 Intake Total 1400 Output Total 1000 Balance 400 - Medications Medications: Current Medications Acetaminophen (Tylenol 325mg Tab) 650 mg PO Q6 PRN PRN Reason: Fever >100.4 F Last Admin: 01/15/19 14:59 Dose: 650 mg Sodium Chloride (Sodium Chloride 0.9%) 1,000 mls @ 100 mls/hr IV .Q10H NELIA Last Admin: 01/15/19 21:53 Dose: 100 mls/hr Ciprofloxacin (Cipro 200mg/100ml D5w) 100 mls @ 67 mls/hr IVPB Q12H NELIA; Protocol Last Admin: 01/16/19 04:25 Dose: 67 mls/hr Nicotine (Nicoderm Cq) 1 patch TD DAILY NELIA Last Admin: 01/15/19 10:11 Dose: 1 patch Pantoprazole Sodium (Protonix Inj) 40 mg IVP DAILY NELIA Last Admin: 01/15/19 10:11 Dose: 40 mg - Labs Labs: 01/15/19 08:37 01/15/19 08:37 - Constitutional Appears: Non-toxic, No Acute Distress - Head Exam Head Exam: ATRAUMATIC, NORMOCEPHALIC - Eye Exam Eye Exam: EOMI, Normal appearance, PERRL - ENT Exam ENT Exam: Mucous Membranes Moist - Respiratory Exam Respiratory Exam: Clear to Auscultation Bilateral, NORMAL BREATHING PATTERN. absent: Rales, Rhonchi, Wheezes - Cardiovascular Exam Cardiovascular Exam: RRR, +S1, +S2. absent: Gallop, Rubs, Systolic Murmur - GI/Abdominal Exam GI & Abdominal Exam: Normal Bowel Sounds, Soft. absent: Distended, Guarding, Organomegaly, Rebound, Tenderness - Extremities Exam Extremities exam: Positive for: full ROM, normal capillary refill, tenderness (Stage 2 ulcer 8 cm in diameter distal to L medial malleolus, c/d/i, no purulent drainage, tender to palpation on exam), pedal pulses present. Negative for: pedal edema - Back Exam Back exam: FULL ROM, NORMAL INSPECTION. absent: paraspinal tenderness - Neurological Exam Neurological exam: Alert, CN II-XII Intact, Oriented x3, Reflexes Normal - Skin Skin Exam: Dry, Intact, Warm Additional comments: diffuse psoriasis Assessment and Plan - Assessment and Plan (Free Text) Assessment: 48 year old male with past medical history of liver cirrhosis, Hep C (dx in 200 5), former EtOH abuse and IVDA (last use 10 y ago as per pt), psoriasis who presents to the ED c/o worsening low back pain that started this morning. Tachycardic and leukocytosis on admission, meets SIRS criteria. Plan: Low back pain, acute - mild multilevel degenerative disc disease, mild neural foraminal narrowing, no acute fracture or spondylolysis, no epidural abscess - Tylenol PRN SIRS, resolved -Tachycardic and leukocytosis on admission -Vanco/Gent discontinued -blood cultures negative x2 -urine culture negative -CXR shows patchy markings at lung bases -IVF at 100 cc/hr -procal elevated Thrombocytopenia, chronic -Does not need platelet transfusion at this time -May be 2/2 bone marrow suppression L ankle ulcer, stage 2, chronic -Wound care prn -Cipro 200 mg IV Q12H -wound culture prelim gram positive cocci Hx Cirrhosis, Hep C -Has been seen in past by liver specialist on prior admission to [facility] in November 2017, was recommended liver transplant in 1 y and to establish care with liver specialist in community -Prior w/u in November 2018 demonstrates reactive Hep C, neg viral load -Can f/u with PCP once d/c'd, does not need medical treatment at this time -Abd/pelvis CT: enteritis, fluid-filled bowel loops, cirrhosis of liver w/ portal HTN and moderate splenomegaly, mild diffuse mesenteric edema, stable ingu inal lymphadenopathy Hx IVDA, EtOH abuse -Quit 10 y ago as per pt -UDS positive for methadone -alcohol negative Hx Psoriasis -Not on any current medical therapy -Will cont to monitor PPX -SCD; will hold pharmacologic DVT ppx 2/2 thrombocytopenia -Protonix Dispo: pending cultures Caroline Dolan PGY-1
[2019-01-16 07:17] LABS: BASO % 0.3 % (0.0-2.0); EOS # 0.2 K/uL (0.0-0.7); EOS % 3.7 % (0.0-4.0); HEMOGLOBIN 10.8 g/dL (12.0-18.0); LYMPH # 0.8 K/uL (1.0-4.3); LYMPH % 13.9 % (20.0-40.0); MEAN CORPUSCULAR HEMOGLOBIN 29.2 pg (27.0-31.0); MEAN CORPUSCULAR HGB CONC 34.7 g/dL (33.0-37.0); MEAN PLATELET VOLUME 8.5 fL (7.2-11.7); MONO # 0.5 K/uL (0.0-0.8); MONO % 7.9 % (0.0-10.0); NEUT # 4.3 K/uL (1.8-7.0); NEUT % 74.2 % (50.0-75.0); RBC 3.71 Mil/uL (4.40-5.90); RED CELL DISTRIBUTION WIDTH 16.6 % (11.5-14.5); WHITE BLOOD COUNT 5.9 K/uL (4.8-10.8)
[2019-01-16 07:39] LABS: MEAN CELL VOLUME 84.2 fL (80.0-94.0)
[2019-01-16 07:41] VITALS: BP 116/66; PULSE 76; TEMP 98.7; O2SAT 69
[2019-01-16 07:55] LABS: ALB/GLOB RATIO 0.6 (1.0-2.1); ALBUMIN 2.2 g/dL (3.5-5.0); ALT/SGPT 22 U/L (21-72); AST/SGOT 49 U/L (17-59); BLOOD UREA NITROGEN 12 mg/dL (9-20); CALCIUM 7.2 mg/dl (8.6-10.4); GFR NON-AFRICAN AMERICAN > 60
[2019-01-16] MEDS: Sodium Chloride 0.9% 1,000 ML IV SCH (09:54)
[2019-01-16] MEDS ORDERED: Potassium Chloride 20 mEq ER Tab PO ONE ×2 (10:00→10:30)
--- NOTE | 2019-01-16 11:03 | CP.PCM.DIS ---
Provider - Provider Date of Admission: 01/14/19 12:33 Attending physician: Migel Burkett Jr, MD Primary care physician: Dr. Parnell Consults: 01/14/19 15:39 Wound Care [Nursing Referral for Wound Care] Routine Comment: Physician Instructions: Reason For Exam: L ankle ulcer 01/14/19 17:45 Nursing Referral for Wound Care Routine Comment: Physician Instructions: Reason For Exam: left distal 1.77x 1.77 in Time Spent in preparation of Discharge (in minutes): 35 Diagnosis - Discharge Diagnosis (1) Back pain Status: Resolved (2) Thrombocytopenia Status: Chronic (3) Liver cirrhosis Status: Chronic (4) Hepatitis C Status: Chronic (5) Chronic venous insufficiency Status: Chronic Priority: Medium Hospital Course - Lab Results Lab Results: Micro Results 01/14/19 13:04 Leg - Left Gram Stain - Final 01/14/19 13:04 Leg - Left Wound Culture - Final Staphylococcus Aureus 01/14/19 13:37 Blood Blood Culture - Preliminary NO GROWTH AFTER 24 HOURS 01/14/19 12:48 Blood Blood Culture - Preliminary NO GROWTH AFTER 24 HOURS 01/14/19 13:04 Urine Random Urine Culture - Final No Growth (<1,000 CFU/ML) Most Recent Lab Values WBC 5.9 K/uL (4.8-10.8) 01/16/19 07:06 RBC 3.71 Mil/uL (4.40-5.90) L 01/16/19 07:06 Hgb 10.8 g/dL (12.0-18.0) L 01/16/19 07:06 Hct 31.2 % (35.0-51.0) L 01/16/19 07:06 MCV 84.2 fL (80.0-94.0) D 01/16/19 07:06 MCH 29.2 pg (27.0-31.0) 01/16/19 07:06 MCHC 34.7 g/dL (33.0-37.0) 01/16/19 07:06 RDW 16.6 % (11.5-14.5) H 01/16/19 07:06 Plt Count 34 K/uL (130-400) L 01/16/19 07:06 MPV 8.5 fL (7.2-11.7) 01/16/19 07:06 Neut % (Auto) 74.2 % (50.0-75.0) 01/16/19 07:06 Lymph % (Auto) 13.9 % (20.0-40.0) L 01/16/19 07:06 Thayer % (Auto) 7.9 % (0.0-10.0) 01/16/19 07:06 Eos % (Auto) 3.7 % (0.0-4.0) 01/16/19 07:06 Baso % (Auto) 0.3 % (0.0-2.0) 01/16/19 07:06 Neut # (Auto) 4.3 K/uL (1.8-7.0) 01/16/19 07:06 Lymph # (Auto) 0.8 K/uL (1.0-4.3) L 01/16/19 07:06 Thayer # (Auto) 0.5 K/uL (0.0-0.8) 01/16/19 07:06 Eos # (Auto) 0.2 K/uL (0.0-0.7) 01/16/19 07:06 Baso # (Auto) 0.0 K/uL (0.0-0.2) 01/16/19 07:06 Neutrophils % (Manual) 93 % (50-75) H 01/15/19 08:37 Band Neutrophils % 2 % (0-2) 01/15/19 08:37 Lymphocytes % (Manual) 3 % (20-40) L 01/15/19 08:37 Monocytes % (Manual) 2 % (0-10) 01/15/19 08:37 Eosinophils % (Manual) 1 % (0-4) 01/14/19 10:51 Differential Comment 01/16/19 07:06 Platelet Estimate Decreased (NORMAL) L 01/15/19 08:37 Polychromasia Slight 01/15/19 08:37 Hypochromasia (manual) Slight 01/15/19 08:37 Anisocytosis (manual) Slight 01/15/19 08:37 Sodium 136 mmol/L (132-148) 01/16/19 07:06 Potassium 3.4 mmol/L (3.6-5.2) L 01/16/19 07:06 Chloride 108 mmol/L (98-107) H 01/16/19 07:06 Carbon Dioxide 23 mmol/L (22-30) 01/16/19 07:06 Anion Gap 9 (10-20) L 01/16/19 07:06 BUN 12 mg/dL (9-20) 01/16/19 07:06 Creatinine 0.7 mg/dL (0.8-1.5) L 01/16/19 07:06 Est GFR ( Amer) > 60 01/16/19 07:06 Est GFR (Non-Af Amer) > 60 01/16/19 07:06 Random Glucose 67 mg/dL (75-110) L D 01/16/19 07:06 Hemoglobin A1c 4.3 % (4.2-6.5) 01/15/19 08:37 Lactic Acid 3.7 mmol/L (0.7-2.1) H 01/14/19 12:48 Calcium 7.2 mg/dl (8.6-10.4) L 01/16/19 07:06 Phosphorus 2.6 mg/dL (2.5-4.5) 01/16/19 07:06 Magnesium 1.6 mg/dL (1.6-2.3) 01/16/19 07:06 Total Bilirubin 1.3 mg/dL (0.2-1.3) 01/16/19 07:06 AST 49 U/L (17-59) 01/16/19 07:06 ALT 22 U/L (21-72) 01/16/19 07:06 Alkaline Phosphatase 105 U/L (38-126) 01/16/19 07:06 Total Protein 5.9 g/dL (6.3-8.3) L 01/16/19 07:06 Albumin 2.2 g/dL (3.5-5.0) L 01/16/19 07:06 Globulin 3.7 gm/dL (2.2-3.9) 01/16/19 07:06 Albumin/Globulin Ratio 0.6 (1.0-2.1) L 01/16/19 07:06 Triglycerides 40 mg/dL (0-149) 01/15/19 08:37 Cholesterol 55 mg/dL (0-199) 01/15/19 08:37 LDL Cholesterol Direct < 30 mg/dL (0-129) 01/15/19 08:37 HDL Cholesterol 26 mg/dL (30-70) L 01/15/19 08:37 Lipase 158 U/L (23-300) 01/14/19 10:51 Procalcitonin 16.22 NG/ML (0.19-0.49) H 01/15/19 10:10 Free T4 1.38 ng/dL (0.78-2.19) 01/15/19 08:37 TSH 3rd Generation 0.51 mIU/L (0.46-4.68) 01/15/19 08:37 Urine Color Lory (YELLOW) 01/14/19 11:55 Urine Clarity Hazy (Clear) 01/14/19 11:55 Urine pH 5.0 (5.0-8.0) 01/14/19 11:55 Ur Specific [place] 1.014 (1.003-1.030) 01/14/19 11:55 Urine Protein 1+ mg/dL (NEGATIVE) H 01/14/19 11:55 Urine Glucose (UA) Normal mg/dL (Normal) 01/14/19 11:55 Urine Ketones Trace mg/dL (NEGATIVE) 01/14/19 11:55 Urine Blood 3+ (NEGATIVE) H 01/14/19 11:55 Urine Nitrate Negative (NEGATIVE) 01/14/19 11:55 Urine Bilirubin Negative (NEGATIVE) 01/14/19 11:55 Urine Urobilinogen 2.0 mg/dL (0.2-1.0) 01/14/19 11:55 Ur Leukocyte Esterase Neg Jhonathan/uL (Negative) 01/14/19 11:55 Urine WBC (Auto) 5 /hpf (0-5) 01/14/19 11:55 Urine RBC (Auto) 38 /hpf (0-3) H 01/14/19 11:55 Ur Squamous Epith Cells 2 /hpf (0-5) 01/14/19 11:55 Urine Bacteria Rare (<OCC) 01/14/19 11:55 Urine Opiates Screen Negative (NEGATIVE) 01/14/19 19:20 Urine Methadone Screen Positive (NEGATIVE) H 01/14/19 19:20 Ur Barbiturates Screen Negative (NEGATIVE) 01/14/19 19:20 Ur Phencyclidine Scrn Negative (NEGATIVE) 01/14/19 19:20 Ur Amphetamines Screen Negative (NEGATIVE) 01/14/19 19:20 U Benzodiazepines Scrn Negative (NEGATIVE) 01/14/19 19:20 U Oth Cocaine Metabols Negative (NEGATIVE) 01/14/19 19:20 U Cannabinoids Screen Negative (NEGATIVE) 01/14/19 19:20 Alcohol, Quantitative < 10 mg/dl (0-10) 01/14/19 20:02 - Hospital Course Hospital Course: On admission: 48 y o male with PMhx Liver cirrhosis, Hep C (dx in 2004), former EtOH abuse and IVDA (last use 10 y ago as per pt), Psoriasis who presents to the ED c/o worsening low back pain that started this morning. Pt states the pain woke him up from sleep this am and states he was unable to ambulate or stand up straight, thus he came to the ED. Not c/o low back pain on exam currently, states the medication he was given in the ED helped with his back pain. Denies sciatic-like symptoms, bowel/bladder incontinence, numbness/tingling down lower extremities b/l. Reports subjective fevers and chills at home that have been present since this am. Denies neck pain or recent IVDA or injection. Denies headache, dizziness, chest pain, sob, cough, n/v/d/c, abd pain, urinary complaints, or other symptoms. Pt states he was recently admitted to [facility] 1 month ago for abd pain and was treated with IV antibiotics for bacterial infection in the blood. Reports chronic hx of Hep C and liver cirrhosis, states his last paracentesis was 2 y ago; denies bloating, enlargement of his abdomen, or discomfort similar to his ascites episodes in the past. Reports he follows with pain management doctor in the [place] (Dr. Arnett). Of note, pt states he lives in the [place] but was visiting his mother who lives in [place] for the holiday weekend. During hospital stay: MRI was done to evaluate patient's back pain which showed mild multilevel degenerative disc disease, mild neural foraminal narrowing, no acute fracture or spondylolysis, no epidural abscess. Patient was also noted to be tachycardic and with leukocytosis on admission. Vancomycin and gentamicin were started. Blood cultures and urine cultures were negative. Procalcitonin was elevated. Thrombocytopenia was noted. Patient states he has been seen in past by liver specialist on prior admission to [facility] in November 2017, was recommended liver transplant in 1 y and to establish care with liver specialist in community. Prior workup in November 2018 demonstrates reactive hepatitis C, negative viral load. Abdomen pelvis CT was done which showed 1. Fluid-filled mildly dilated mid small bowel loops, nonspecific and could represent nonspecific enteritis. No evidence for bowel obstruction. 2. Cirrhosis of liver with portal hypertension and moderate splenomegaly. 3. Mild diffuse mesenteric edema. 4. Stable inguinal lymphadenopathy, worse on the left. Wound care was consulted for patient's stage 2 chronic left ankle ulcer. Wound culture grew staph aureus, patient was given script for Bactrim DS. Urine drug screen was positive for methadone. Alcohol level was negative. Patient was optimized for discharge. Please see EMR for full summary. Discharge Exam - Additional Findings Additional findings: - Constitutional Appears: Non-toxic, No Acute Distress - Head Exam Head Exam: ATRAUMATIC, NORMOCEPHALIC - Eye Exam Eye Exam: EOMI, Normal appearance, PERRL - ENT Exam ENT Exam: Mucous Membranes Moist - Respiratory Exam Respiratory Exam: Clear to Auscultation Bilateral, NORMAL BREATHING PATTERN. absent: Rales, Rhonchi, Wheezes - Cardiovascular Exam Cardiovascular Exam: RRR, +S1, +S2. absent: Gallop, Rubs, Systolic Murmur - GI/Abdominal Exam GI & Abdominal Exam: Normal Bowel Sounds, Soft. absent: Distended, Guarding, Organomegaly, Rebound, Tenderness - Extremities Exam Extremities exam: Positive for: full ROM, normal capillary refill, tenderness (Stage 2 ulcer 8 cm in diameter distal to L medial malleolus, c/d/i, no purulent drainage, tender to palpation on exam), pedal pulses present. Negative for: pedal edema - Back Exam Back exam: FULL ROM, NORMAL INSPECTION. absent: paraspinal tenderness - Neurological Exam Neurological exam: Alert, CN II-XII Intact, Oriented x3, Reflexes Normal - Skin Skin Exam: Dry, Intact, Warm Additional comments: diffuse psoriasis Discharge Plan - Discharge Medications Prescriptions: Famotidine [Pepcid] 20 mg PO DAILY PRN 14 Days #14 tab PRN Reason: Indigestion / Heartburn Sulfamethoxazole/Trimethoprim [Bactrim DS 800 mg-160 mg] 1 tab PO BID #80 tab - Follow Up Plan Disposition: HOME/ ROUTINE Patient education suggested?: Yes Instructions: Wound Care (DC), Sulfamethoxazole and Trimethoprim Additional Instructions: Please follow up with Dr. Burkett within a week Resume your home medications Take your Bactrim DS as prescribed. You should be taking 1 tablet twice a day for 10 days and then from then on take one tablet once a day until your foot wound heals Return to ED if symptoms return or worsen Referrals: Migel Burkett Jr., MD [Medical Doctor] -
== END 2019-01-16 12:49 | disposition home or self-care (01) | DRG 243 ==
LOC: C.ER 09:42 → C.9E 12:33 → C.3T 14:55
PROVIDERS: ADMIT Internal Medicine; ATTEND Internal Medicine
DX: M47.816 Spondylosis without myelopathy or radiculopathy, lumbar region (principal); B19.20 Unspecified viral hepatitis C without hepatic coma; D69.6 Thrombocytopenia, unspecified; K74.60 Unspecified cirrhosis of liver; L97.329 Non-pressure chronic ulcer of left ankle with unspecified severity; R32 Unspecified urinary incontinence; D72.825 Bandemia; K76.6 Portal hypertension; F17.210 Nicotine dependence, cigarettes, uncomplicated